=== PATIENT | male | born 1965 | race Caucasian/White ===

== ENCOUNTER → 2017-09-15 | Day surgery (SDC) | payer BC ==
[2017-09-11 11:29] VITALS: Ht 165.1 cm; Wt 77.3 kg
[~2017-09-15] VITALS: Ht 165.1 cm; Wt 77.3 kg
[~2017-09-15] MED LIST: ASPI81TA28 PO; CRS/10 PO; FLVHFA110 INH; LIDOCAINE HCL 2% 2 ML VIAL (20MG/ML) ONE; LISI-787 PO; MIDAZOLAM HCL 1 MG/ML 2ML VIAL ONE; MULTTAB58 PO; ONDANSETRON INJ 2 MG/ML 2 ML VIAL ONE; PROPOFOL IV EMULSION 10 MG/ML 20 ML VIAL IV ONE; SODIUM CHLORIDE 0.9% 500ML 500 ML IV ONE; VITA1TAB4 PO; VNTHFA/IN INH
--- NOTE | 2017-09-15 11:33 | Endo History and Physical ---
History & Physical Date of Service: Sep 15, 2017. Chief Complaint: SCREENING Referring Physician: DR. Hong COVARRUBIAS History of Present Illness 52 yo CM who presents for screening colonoscopy. Past Medical History Asthma, Gastrointestinal Disorder, Hypertension Past Surgical History Hx Cardiac Surgery: No Hx Internal Defibrillator: No Hx Pacemaker: No Hx Abdominal Surgery: No Hx of Implantable Prosthesis: No Hx Post-Op Nausea and Vomiting: No Hx Cancer Surgery: No Hx Thoracic Surgery: No Hx Orthopedic: No Hx Urinary Tract Surgery: No Family History None Social History Smoking Status: Never Smoker Hx Substance Use: No Hx Alcohol Use: No Allergies Coded Allergies: NO KNOWN DRUG ALLERGIES (Verified Allergy, Unknown, ., 09/15/17) Yellow Jacket (Verified Allergy, Unknown, THROAT SWELLING, 09/15/17) Current Medications Reported Home Medications Medications Dose Route/Sig Max Daily Dose Days Date Category Vitamin E 400 Unit Tab 1 Tab PO DAILY 09/11/17 Reported Multivitamin (Multiple Vitamin) 1 Tab Tab 1 Tab PO DAILY 09/11/17 Reported Aspirin Ec (Aspirin) 81 Mg Tab 81 Mg PO DAILY 09/11/17 Reported Ventolin Hfa (Albuterol) 200 Puffs/26179 Mcg Aers 2-4 Puffs INH Q6H PRN 09/11/17 Reported Flovent Hfa (Fluticasone Propionate) 120 Puffs/15551 Mcg Aero 2 Puffs INH BID 09/11/17 Reported Zestoretic 20MG/12.5MG (HCTZ/Lisinopril) Tab 1 Tab PO QPM 05/10/14 Reported Crestor (Rosuvastatin Calcium) 10 Mg Tab 10 Mg PO QPM 05/10/14 Reported Vital Signs Weight (Kilograms): 77.27 Height (Feet): 5 Height (Inches): 5 Date Time Temp Pulse Resp B/P (MAP) Pulse Ox O2 Delivery O2 Flow Rate FiO2 09/15/17 11:00 37.0 88 18 152/83 (106) 97 Room Air Physical Exam General Appearance: WD/WN, no apparent distress Respiratory/Chest: Auscultation: breath sounds normal Cardiovascular: Heart Auscultation: RRR Abdomen: Bowel Sounds: normal Inspection & Palpation: soft, non-distended, no tenderness, guarding & rebound Assessment and Plan Assessment: 52 yo CM who presents for screening colonoscopy. Plan: Proceed with colonoscopy.
--- NOTE | 2017-09-15 12:01 | GI REPORT ---
Procedure Date: 09/15/2017 11:18 AM Procedure: Colonoscopy Indications: Screening for colorectal malignant neoplasm Medicines: Monitored Anesthesia Care Complications: No immediate complications. Estimated Blood Loss: Estimated blood loss: none. Procedure: Pre-Anesthesia Assessment: - Prior to the procedure, a History and Physical was performed, and patient medications and allergies were reviewed. The patient's tolerance of previous anesthesia was also reviewed. The risks and benefits of the procedure and the sedation options and risks were discussed with the patient. All questions were answered, and informed consent was obtained. Prior Anticoagulants: The patient has taken aspirin, last dose was 1 day prior to procedure. ASA Grade Assessment: II - A patient with mild systemic disease. After reviewing the risks and benefits, the patient was deemed in satisfactory condition to undergo the procedure. After I obtained informed consent, the scope was passed under direct vision. Throughout the procedure, the patient's blood pressure, pulse, and oxygen saturations were monitored continuously. The On-site loaner was introduced through the anus and advanced to the terminal ileum. The colonoscopy was performed without difficulty. The patient tolerated the procedure well. The quality of the bowel preparation was good. The terminal ileum, ileocecal valve, appendiceal orifice, and rectum were photographed. Findings: The perianal and digital rectal examinations were normal. Multiple small-mouthed diverticula were found in the sigmoid colon and in the descending colon. A 3 mm polyp was found in the rectum. The polyp was sessile. The polyp was removed with a cold biopsy forceps. Resection and retrieval were complete. Non-bleeding internal hemorrhoids were found during retroflexion. The hemorrhoids were small. Impression: - Diverticulosis in the sigmoid colon and in the descending colon. - One 3 mm polyp in the rectum, removed with a cold biopsy forceps. Resected and retrieved. - Non-bleeding internal hemorrhoids. Recommendation: - Resume previous diet. - Continue present medications. - Repeat colonoscopy for surveillance based on pathology results. - Return to primary care physician as previously scheduled. Hernandez Acevedo DO 09/15/2017 12:00:41 PM This report has been signed electronically. Note Initiated On: 09/15/2017 11:18 AM I attest to the content of the Intraoperative Record and orders documented therein, exceptions below
--- NOTE | 2017-09-15 12:16 | Anesthesiology Progress Note ---
Anesthesia Post Op Note Date & Time Sep 15, 2017 at 12:16 Vital Signs Pain Intensity: 0 Vital Signs Past 12 Hours Date Time Temp Pulse Resp B/P (MAP) Pulse Ox O2 Delivery O2 Flow Rate FiO2 09/15/17 12:01 81 18 123/71 (88) 97 Room Air 09/15/17 11:00 37.0 88 18 152/83 (106) 97 Room Air Notes Mental Status: alert / awake / arousable, participated in evaluation Pt Amnestic to Procedure: Yes Nausea / Vomiting: adequately controlled Pain: adequately controlled Airway Patency, RR, SpO2: stable & adequate BP & HR: stable & adequate Hydration State: stable & adequate Anesthetic Complications: no major complications apparent
[2017-09-15 12:31] VITALS: BP 121/70; PULSE 70; O2SAT 96
--- NOTE | 2017-09-15 12:38 | Discharge Instructions ---
Endoscopy Patient Instructions Date / Procedure(s) Performed Sep 15, 2017. Colonoscopy Allergy Information Coded Allergies: NO KNOWN DRUG ALLERGIES (Verified Allergy, Unknown, ., 09/15/17) Yellow Jacket (Verified Allergy, Unknown, THROAT SWELLING, 09/15/17) Discharge Date / Findings Sep 15, 2017. Rectal polyp Diverticulosis Internal hemorrhoids Medication Instructions Stopped Medication(s): 09/14/17 ASPIRIN OK to resume all medications today as prescribed Reported Home Medications Medications Dose Route/Sig Max Daily Dose Days Date Category Vitamin E 400 Unit Tab 1 Tab PO DAILY 09/11/17 Reported Multivitamin (Multiple Vitamin) 1 Tab Tab 1 Tab PO DAILY 09/11/17 Reported Aspirin Ec (Aspirin) 81 Mg Tab 81 Mg PO DAILY 09/11/17 Reported Ventolin Hfa (Albuterol) 200 Puffs/19930 Mcg Aers 2-4 Puffs INH Q6H PRN 09/11/17 Reported Flovent Hfa (Fluticasone Propionate) 120 Puffs/28433 Mcg Aero 2 Puffs INH BID 09/11/17 Reported Zestoretic 20MG/12.5MG (HCTZ/Lisinopril) Tab 1 Tab PO QPM 05/10/14 Reported Crestor (Rosuvastatin Calcium) 10 Mg Tab 10 Mg PO QPM 05/10/14 Reported Provider Instructions Activity Restrictions - No exercising or heavy lifting for 24 hours. - Do not drink alcohol the day of the procedure. - Do not drive a car or operate machinery until the day after the procedure. - Do not make any important decisions or sign important papers in 24 hours after the procedure. Following Day: - Return to full activity which may include returning to work/school. Diet Start your diet with liquids and light foods (jello, soup, juice, toast). Then eat your usual diet if not nauseated. Treatment For Common After Affects For mild abdominal pain, bloating, or excessive gas: - Rest - Eat lightly - Lie on right side Follow-Up Information Follow-up with DR. Hong COVARRUBIAS as scheduled Anesthesia Information What You Should Know You have had a procedure that required some medicine to reduce anxiety and discomfort. This treatment is called moderate sedation. After receiving the treatment, you may be sleepy, but you will be able to breathe on your own. The effects of the treatment may last for several hours. Follow these instructions along with Activity/Diet recommendations noted above: * Do NOT do anything where dizziness or clumsiness would be dangerous. * Rest quietly at home today, then you can be up and about tomorrow. * Have a responsible person stay with you the rest of today. * You may have had an I.V. today. If so, you may take the dressing off later today. Recommendations Call your doctor if: * Trouble breathing * Continuous vomiting for more than 24 hours * Temperature above 101 degrees * Severe abdominal pain or bloating * Pain not relieved by pain medicine ordered * There is increased drainage or redness from any incision * A large amount of rectal bleeding greater than 2-3 tablespoons. (If you had a polyp/s removed or have hemorrhoids, a small amount of blood - from the rectum is to be expected.) * You have any unanswered questions or concerns. IN THE EVENT OF A SERIOUS EMERGENCY, GO TO THE NEAREST EMERGENCY ROOM Your discharge instructions were prepared by provider Hernandez Acevedo. Patient Instructions Signature Page Emigdio Thomas Patient (or Guardian) Signature/Date: I have read and understand the instructions given to me by my caregivers. Caregiver/RN/Doctor Signature/Date: The above-named patient and/or guardian has received patient instructions on this date. + Original Patient Signature Page (only) stays with chart. Please make copy for patient.
== END | disposition home or self-care (01) ==
LOC: C.GI 10:34
PROVIDERS: ATTEND Internal Medicine
DX: Z12.11 Encounter for screening for malignant neoplasm of colon (principal); K62.1 Rectal polyp; K57.30 Diverticulosis of large intestine without perforation or abscess without bleeding; K64.8 Other hemorrhoids; I10 Essential (primary) hypertension; Z79.899 Other long term (current) drug therapy

== ENCOUNTER 2017-09-22 11:24 | Inpatient (IN) | payer BC ==
[~2017-09-22] VITALS: Ht 162.6 cm; Wt 80.4 kg
[~2017-09-22 11:24] MED LIST changes: -LIDOCAINE HCL 2% 2 ML VIAL (20MG/ML) ONE; -MIDAZOLAM HCL 1 MG/ML 2ML VIAL ONE; -ONDANSETRON INJ 2 MG/ML 2 ML VIAL ONE; -PROPOFOL IV EMULSION 10 MG/ML 20 ML VIAL IV ONE; -SODIUM CHLORIDE 0.9% 500ML 500 ML IV ONE
[2017-09-22] MEDS ORDERED: ONDANSETRON INJ 2 MG/ML 2 ML VIAL IV STA (11:48)
[2017-09-22] MEDS ORDERED: SODIUM CHLORIDE 0.9% 1000ML 1,000 ML IV STA (11:48)
[2017-09-22] MEDS ORDERED: MoRPHine SULFATE 4 MG/ML 1 ML CARP\\VIAL IV PRN ×2 (12:00→13:30)
[2017-09-22] MEDS ORDERED: OPTIRAY 320 IV PRN (12:00)
[2017-09-22 12:06] LABS: BASO % 0.2 %; BASO ABS # 0.03 K/uL (0-0.2); EOS % 4.6 %; EOS ABS # 0.79 K/uL (0-0.5); HEMOGLOBIN 15.1 g/dL (14.0-18.0); IG# 0.05 K/uL (0.00-0.02); LYMPH % 10.7 %; LYMPH ABS # 1.85 K/uL (1.2-3.4); MEAN CELL VOLUME 89.4 fL (80-100); MEAN CORPUSCULAR HEMOGLOBIN 31.4 pg (25-34); MEAN CORPUSCULAR HGB CONC 35.1 g/dl (32-36); MEAN PLATELET VOLUME 10.9 fL (7.4-10.4); MONO % 4.6 %; NEUT % 79.6 %; NEUT ABS # 13.77 K/uL (1.4-6.5); PLATELET COUNT 203 K/uL (130-400); RED CELL DISTRIBUTION WIDTH CV 13.4 % (11.5-14.5); RED CELL DISTRIBUTION WIDTH SD 44.2 fL (36.4-46.3); WHITE BLOOD COUNT 17.29 K/uL (4.8-10.8)
[2017-09-22 12:24] LABS: ALBUMIN 3.9 gm/dl (3.4-5.0); CALCIUM 8.9 mg/dl (8.5-10.1); CREATININE 1.12 mg/dl (0.60-1.40); POTASSIUM 3.6 mmol/L (3.5-5.1)
[2017-09-22 12:26] LABS: TOTAL PROTEIN 7.3 gm/dl (6.4-8.2)
--- NOTE | 2017-09-22 12:31 | DIAGNOSTIC IMAGING REPORT ---
CHEST ONE VIEW PORTABLE CLINICAL HISTORY: Pain, radiating to the abdomen. COMPARISON STUDY: 05/03/2007 FINDINGS: The cardiac and mediastinal contours are normal. There is no evidence of focal pulmonary consolidation. There is no evidence of failure. No pleural effusions are visualized.[ IMPRESSION: No active disease in the chest. Electronically signed by: Gilbert Li M.D. 09/22/2017 12:29 PM Dictated Date/Time: 09/22/2017 12:29 PM
--- NOTE | 2017-09-22 14:31 | DIAGNOSTIC IMAGING REPORT ---
ABD/PELVIS IV AND ORAL CONT CT DOSE: 468.06 mGy.cm HISTORY: Pain ABDOMINAL PAIN/GI TECHNIQUE: Multiaxial CT images of the abdomen and pelvis were performed following the use of intravenous and oral contrast. A dose lowering technique was utilized adhering to the principles of ALARA. COMPARISON STUDY: 10/10/2008 FINDINGS: Lung bases are clear. Several small hepatic cysts minimal increase in size in the prior study. Gallbladder is negative for distention. Pancreas is uniform throughout. Kidneys are considered negative for hydronephrosis. Enhancement characteristics are uniform. The bowel pattern within the abdomen and pelvis is nonobstructive. There are findings of chronic colonic diverticulosis. There is evidence for acute diverticulitis within the left central mid sigmoid colon. Moderate pericolonic infiltrative change is present. There is a normal-appearing appendix. There is no evidence for abscess collection or obstruction. There is evidence for localized soft tissue air within the central and superior pelvic region. This suggests a potential localized perforation. There is again no evidence for drainable abscess or collection. There is no free air within the abdomen or upper abdominal regions. There is no evidence for pneumatosis.. IMPRESSION: 1. Acute proximal to mid sigmoid diverticulitis. 2. Moderate free intrapelvic air within the mesentery and omentum suggesting a focal diverticular perforation. 3. No evidence for abscess collection or obstructive change. 4. Study is otherwise negative. 5. Several small hepatic cysts. The above report was generated using voice recognition software. It may contain grammatical, syntax or spelling errors. Electronically signed by: Phong Winter M.D. 09/22/2017 2:29 PM Dictated Date/Time: 09/22/2017 2:22 PM
[2017-09-22] MEDS ORDERED: PIPERACILLIN/TAZOBACTAM 4.5 GM/100ML D5W IV STA (14:35)
[2017-09-22] MEDS ORDERED: METRONIDAZOLE 500MG / 100ML NSS IV STA (14:35)
[2017-09-22] MEDS ORDERED: HYDROmorphone INJ 1 MG/ML SYR IV STA (14:41)
--- NOTE | 2017-09-22 15:22 | EMERGENCY ROOM VISIT NOTE ---
History Report prepared by Monica: Bertha Jacobson Under the Supervision of: Dr. Hemant Blanco D.O. First contact with patient: 11:34 Chief Complaint: ABDOMINAL PAIN Stated Complaint: AB PAIN Nursing Triage Summary: Patient presents with c/o lower abdominal pain that is below his umbilicus that started about 0900 Denies nausea, vomiting, or diarrhea States he had a colonoscopy 09/15/17 States he was trying to have a bowel movement this morning when pain began Also reports decreased urinary output despite increased intake History of Present Illness The patient is a 52 year old male who presents to the Emergency Room with complaints of persistent right lower quadrant abdominal pain that began this morning. He currently rates his discomfort as an 8/10 in severity. The patient states that last week he had a colonoscopy. He states that his pain began 4 hours ago. The patient reports fever and chills with his symptoms today. He denies any nausea, vomiting, or diarrhea. The patient denies any previous abdominal surgeries. Source of History: patient Onset: this morning 4 hours ago Position: abdomen (RLQ) Symptom Intensity: 8/10 Timing: other (persistent) Associated Symptoms: + fevers, + chills, No nausea, No vomiting, No diarrhea Review of Systems See HPI for pertinent positives & negatives. A total of 10 systems reviewed and were otherwise negative. Past Medical & Surgical Medical Problems: (1) Asthma (2) Diverticulitis (3) Diverticulitis (4) Hypertension Surgical Problems: (1) H/O colonoscopy Family History No pertinent family history stated. Social History Smoking Status: Never Smoker Marital Status: Housing Status: lives with significant other Occupation Status: employed Current/Historical Medications Scheduled Aspirin (Aspirin Ec), 81 MG PO DAILY Fluticasone Propionate (Flovent Hfa), 2 PUFFS INH BID Lisinopril/Hctz (Zestoretic 20MG/12.5MG), 1 TAB PO QPM Multiple Vitamin (Multivitamin), 1 TAB PO DAILY Rosuvastatin Calcium (Crestor), 10 MG PO QPM Vitamin E (Vitamin E), 1 TAB PO DAILY Scheduled PRN Albuterol Hfa (Ventolin Hfa), 2-4 PUFFS INH Q6H PRN for Shortness of Breath Allergies Coded Allergies: NO KNOWN DRUG ALLERGIES (Verified Allergy, Unknown, ., 09/22/17) Yellow Jacket (Verified Allergy, Unknown, THROAT SWELLING, 09/22/17) Physical Exam Vital Signs Date Time Temp Pulse Resp B/P (MAP) Pulse Ox O2 Delivery O2 Flow Rate FiO2 09/22/17 14:46 100 18 126/77 99 Room Air 09/22/17 13:52 72 18 119/69 98 Room Air 09/22/17 11:28 36.5 74 20 162/108 99 Room Air Physical Exam CONSTITUTIONAL/VITAL SIGNS: Reviewed / noted above. GENERAL: Non-toxic in appearance. INTEGUMENTARY: Warm, dry, and [place]. HEAD: Normocephalic. EYES: without scleral icterus or trauma. ENT/OROPHARYNX: clear and moist. LYMPHADENOPATHY/NECK: Is supple without lymphadenopathy or meningismus. RESPIRATORY: Lungs clear and equal. CARDIOVASCULAR: Regular rate and rhythm. GI/ABDOMEN: Soft and tenderness to palpation of the right lower quadrant and suprapubic area. No organomegaly or pulsatile mass. No rebound or guarding. Normal bowel sounds. EXTREMITIES: Warm and well perfused. BACK: No CVA tenderness. NEUROLOGICAL: Intact without focal deficits. PSYCHIATRIC: normal affect. MUSCULOSKELETAL: Normally developed with good muscle tone. Medical Decision & Procedures ER Provider Diagnostic Interpretation: Radiology results as stated below per my review and radiologist interpretation: ABD/PELVIS IV AND ORAL CONT CT DOSE: 468.06 mGy.cm HISTORY: Pain ABDOMINAL PAIN/GI TECHNIQUE: Multiaxial CT images of the abdomen and pelvis were performed following the use of intravenous and oral contrast. A dose lowering technique was utilized adhering to the principles of ALARA. COMPARISON STUDY: 10/10/2008 FINDINGS: Lung bases are clear. Several small hepatic cysts minimal increase in size in the prior study. Gallbladder is negative for distention. Pancreas is uniform throughout. Kidneys are considered negative for hydronephrosis. Enhancement characteristics are uniform. The bowel pattern within the abdomen and pelvis is nonobstructive. There are findings of chronic colonic diverticulosis. There is evidence for acute diverticulitis within the left central mid sigmoid colon. Moderate pericolonic infiltrative change is present. There is a normal-appearing appendix. There is no evidence for abscess collection or obstruction. There is evidence for localized soft tissue air within the central and superior pelvic region. This suggests a potential localized perforation. There is again no evidence for drainable abscess or collection. There is no free air within the abdomen or upper abdominal regions. There is no evidence for pneumatosis.. IMPRESSION: 1. Acute proximal to mid sigmoid diverticulitis. 2. Moderate free intrapelvic air within the mesentery and omentum suggesting a focal diverticular perforation. 3. No evidence for abscess collection or obstructive change. 4. Study is otherwise negative. 5. Several small hepatic cysts. The above report was generated using voice recognition software. It may contain grammatical, syntax or spelling errors. Electronically signed by: Phong Winter M.D. 09/22/2017 2:29 PM Dictated Date/Time: 09/22/2017 2:22 PM CHEST ONE VIEW PORTABLE CLINICAL HISTORY: Pain, radiating to the abdomen. COMPARISON STUDY: 05/03/2007 FINDINGS: The cardiac and mediastinal contours are normal. There is no evidence of focal pulmonary consolidation. There is no evidence of failure. No pleural effusions are visualized.[ IMPRESSION: No active disease in the chest. Electronically signed by: Gilbert Li M.D. 09/22/2017 12:29 PM Dictated Date/Time: 09/22/2017 12:29 PM The status of this report is Signed. Draft = Not yet reviewed or approved by Radiologist. Signed = Reviewed and approved by Radiologist. Laboratory Results 09/22/17 11:48 Red Blood Count 4.81, Mean Corpuscular Volume 89.4, Mean Corpuscular Hemoglobin 31.4, Mean Corpuscular Hemoglobin Concent 35.1, Mean Platelet Volume 10.9, Neutrophils (%) (Auto) 79.6, Lymphocytes (%) (Auto) 10.7, Monocytes (%) (Auto) 4.6, Eosinophils (%) (Auto) 4.6, Basophils (%) (Auto) 0.2, Neutrophils # (Auto) 13.77, Lymphocytes # (Auto) 1.85, Monocytes # (Auto) 0.80, Eosinophils # (Auto) 0.79, Basophils # (Auto) 0.03 Test 09/22/17 11:48 09/22/17 12:25 09/22/17 15:05 White Blood Count 17.29 K/uL (4.8-10.8) Red Blood Count 4.81 M/uL (4.7-6.1) Hemoglobin 15.1 g/dL (14.0-18.0) Hematocrit 43.0 % (42-52) Mean Corpuscular Volume 89.4 fL (80-100) Mean Corpuscular Hemoglobin 31.4 pg (25-34) Mean Corpuscular Hemoglobin Concent 35.1 g/dl (32-36) Platelet Count 203 K/uL (130-400) Mean Platelet Volume 10.9 fL (7.4-10.4) Neutrophils (%) (Auto) 79.6 % Lymphocytes (%) (Auto) 10.7 % Monocytes (%) (Auto) 4.6 % Eosinophils (%) (Auto) 4.6 % Basophils (%) (Auto) 0.2 % Neutrophils # (Auto) 13.77 K/uL (1.4-6.5) Lymphocytes # (Auto) 1.85 K/uL (1.2-3.4) Monocytes # (Auto) 0.80 K/uL (0.11-0.59) Eosinophils # (Auto) 0.79 K/uL (0-0.5) Basophils # (Auto) 0.03 K/uL (0-0.2) RDW Standard Deviation 44.2 fL (36.4-46.3) RDW Coefficient of Variation 13.4 % (11.5-14.5) Immature Granulocyte % (Auto) 0.3 % Immature Granulocyte # (Auto) 0.05 K/uL (0.00-0.02) Est Creatinine Clear Calc Drug Dose 73.0 ml/min Total Bilirubin 0.5 mg/dl (0.2-1) Direct Bilirubin 0.1 mg/dl (0-0.2) Aspartate Amino Transf (AST/SGOT) 19 U/L (15-37) Alanine Aminotransferase (ALT/SGPT) 34 U/L (12-78) Alkaline Phosphatase 62 U/L (45-117) Total Protein 7.3 gm/dl (6.4-8.2) Albumin 3.9 gm/dl (3.4-5.0) Lipase 278 U/L (73-393) Urine Color YELLOW Urine Appearance CLEAR (CLEAR) Urine pH 8.0 (4.5-7.5) Urine Specific Almond 1.021 (1.000-1.030) Urine Protein NEG (NEG) Urine Glucose (UA) NEG (NEG) Urine Ketones NEG (NEG) Urine Occult Blood NEG (NEG) Urine Nitrite NEG (NEG) Urine Bilirubin NEG (NEG) Urine Urobilinogen NEG (NEG) Urine Leukocyte Esterase NEG (NEG) Urine WBC (Auto) 0 /hpf (0-5) Urine RBC (Auto) 0-4 /hpf (0-4) Urine Hyaline Casts (Auto) 0 /lpf (0-5) Urine Epithelial Cells (Auto) 0-5 /lpf (0-5) Urine Bacteria (Auto) NEG (NEG) Laboratory results as stated above per my review. Medications Administered Medications (Trade) Dose Ordered Sig/Gagandeep Route Start Time Stop Time Status Last Admin Dose Admin Sodium Chloride 1,000 ml @ 999 mls/hr Q1H1M STAT IV 09/22/17 11:48 09/22/17 12:48 DC 09/22/17 12:23 999 MLS/HR Ondansetron HCl (Zofran Inj) 4 mg NOW STAT IV 09/22/17 11:48 09/22/17 11:52 DC 09/22/17 12:23 4 MG Morphine Sulfate (MoRPHine SULFATE INJ) 4 mg Q1H PRN IV 09/22/17 12:00 10/06/17 11:59 09/22/17 12:23 4 MG Piperacillin Sod/ Tazobactam Sod (Zosyn Iv) 4.5 gm NOW STAT IV 09/22/17 14:35 09/22/17 14:37 DC 09/22/17 15:14 4.5 GM Hydromorphone HCl (Dilaudid Inj) 1 mg NOW STAT IV 09/22/17 14:41 09/22/17 14:42 DC 09/22/17 14:48 1 MG ED Course 1151: Previous medical records were reviewed. The patient was evaluated in room C7. A complete history and physical examination was performed. 1148: Ordered Zofran Inj 4 mg IV, Sodium Chloride 1000 ml @ 999 mls/hr IV. 1200: Ordered Morphine Sulfate 4 mg IV. 1330: Ordered Morphine Sulfate 4 mg IV. 1430: My medical student spoke to Dr. Winter, Radiology at this time regarding the patients catscan. He states that the patient has perforated sigmoid diverticulitis. 1435: Ordered Flagyl/Nss 500 mg IV, Zosyn IV 4.5 gm IV. 1438: I spoke to Diego Jones, General Surgery PA-C. He states that he will come down to evaluate the patient. 1442: The medical student updated the patient on the test results and treatment plan. The patient is in agreement. Medical Decision Differential considered: pancreatitis, hepatitis, or acute cholecystitis, AAA, UTI, pyelonephritis, kidney stones, appendicitis, diverticulitis, shingles, bowel obstruction mesenteric ischemia, intussusception, hernia, testicular torsion. This is a 52-year-old male who presents to the ED with a chief complaint of lower abdominal pain. The patient states that his symptoms started around 8:30 this morning. It is progressively worsened throughout the day. It radiates slightly into the right lateral abdomen. His initial blood pressure was elevated. His physical exam reveals tenderness of the right lower quadrant and suprapubic area. There is no CVA tenderness. The patient denies any previous surgical history. Has no urinary symptoms. CT scan of the abdomen and pelvis reveals a perforated diverticulitis. White blood cell count is elevated at 17, 000. Chemistry panel was unremarkable. Chest x-ray is negative for acute disease. The patient was told the results. He was started on IV Zosyn. Surgery was consulted and will admit the patient for further evaluation and care. Medication Reconcilliation Current Medication List: was personally reviewed by me Consults Time Called: 1436 Consulting Physician: General [facility] Returned Call: [phone] I spoke to Diego Jones General Em CHATMAN. He states that he will come down to evaluate the patient. Impression Primary Impression: Perforation of intestine due to diverticulitis of gastrointestinal tract Scribe Attestation The scribe's documentation has been prepared under my direction and personally reviewed by me in its entirety. I confirm that the note above accurately reflects all work, treatment, procedures, and medical decision making performed by me. Departure Information Dispostion Being Evaluated By Surgeon Hany Garrett M.D. (PCP) Patient Instructions My [facility]
[2017-09-22] MEDS ORDERED: ALBUTEROL HFA 8 GM INHALER INH PRN (15:30)
[2017-09-22 16:36] LABS: CALCIUM 8.5 mg/dl (8.5-10.1); CREATININE 1.18 mg/dl (0.60-1.40); POTASSIUM 3.6 mmol/L (3.5-5.1)
[2017-09-22 17:00] VITALS: BP 122/68; PULSE 91; TEMP 38.2; O2SAT 93; Ht 162.6 cm; Wt 80.4 kg
[2017-09-22] MEDS ORDERED: PIPERACILL/TAZOBAC CONSULT ACTIVE PRN (17:15)
[2017-09-22] MEDS: SODIUM CHLORIDE 0.9% 1000ML 1,000 ML IV SCH ×2 (17:31→23:42)
[2017-09-22] MEDS: ACETAMINOPHEN 500 MG TAB PO PRN ×2 (17:32→23:38)
[2017-09-22] MEDS: MoRPHine SULFATE 2 MG/ML CARP IV PRN ×2 (17:33→23:37)
[2017-09-22] MEDS: ONDANSETRON INJ 2 MG/ML 2 ML VIAL IV PRN ×2 (18:00→23:38)
--- NOTE | 2017-09-22 19:06 | SURGERY PROGRESS NOTE ---
DATE: 09/22/2017 FOLLOWUP NOTE TIME: Seen at about 6:15 in the evening. SUBJECTIVE: Emigdio is resting fairly comfortable. He denies any nausea. His abdomen is softly distended and there is no localized tenderness. His last vitals showed a temperature of 38.2, pulse 82, respirations 18, blood pressure 118/73, O2 sats 98% on room air. The present pathology was discussed with Emigdio including the necessity of surgery and certainly would like to wait more electively rather than proceeding with any acute problem. he had colonoscopy just 4 days ago and this pain just started acutely today, so certainly is not related to that procedure. The path report on the polyp that was removed was fine. At this point, hopefully we can get him over this episode and eventually will need resections as the patient has had symptoms dating back approximately 13 years ago. He never followed up with a colorectal surgeon at that time. JEFFREY
[2017-09-22] MEDS: PIPERACILL/TAZOBAC IV 3.375 GM in DEXTROSE 5% 100ML 100 ML IV SCH (19:32)
[2017-09-22] MEDS ORDERED: INFLUENZA ADMINISTRATION CHARGE ONE (20:00)
[2017-09-22] MEDS ORDERED: INFLUENZA VIRUS QUAD VACCINE 0.5 ML SYR IM. ONE (20:00)
[2017-09-22] MEDS: LISINOPRIL/HCTZ 20/12.5MG TAB PO SCH (21:06)
[2017-09-22] MEDS: FLUTICASONE HFA 110MCG INHALER INH SCH (21:06)
[2017-09-22] MEDS: ROSUVASTATIN CALCIUM 10 MG TAB PO SCH (21:06)
[2017-09-22 21:14] VITALS: BP 116/70; PULSE 60; PULSE 91; TEMP 37.6
[2017-09-22] MEDS: METRONIDAZOLE / NSS 500 MG in PREMIXED NSS 100 ML IV SCH (22:14)
[2017-09-22 22:50] VITALS: BP 116/68; PULSE 99; TEMP 39.1; O2SAT 92
[2017-09-22 23:35] VITALS: TEMP 37.9
[2017-09-23 02:22] VITALS: TEMP 37.1
[2017-09-23] MEDS: PIPERACILL/TAZOBAC IV 3.375 GM in DEXTROSE 5% 100ML 100 ML IV SCH ×3 (03:33→19:47)
[2017-09-23] MEDS: MoRPHine SULFATE 2 MG/ML CARP IV PRN ×3 (03:36→05:44)
[2017-09-23] MEDS: SODIUM CHLORIDE 0.9% 1000ML 1,000 ML IV SCH ×3 (04:22→19:47)
[2017-09-23] MEDS: ONDANSETRON INJ 2 MG/ML 2 ML VIAL IV PRN ×3 (04:36→19:53)
[2017-09-23] MEDS: METRONIDAZOLE / NSS 500 MG in PREMIXED NSS 100 ML IV SCH ×3 (05:35→22:27)
[2017-09-23] MEDS: ACETAMINOPHEN 500 MG TAB PO PRN (05:44)
[2017-09-23 05:51] LABS: BASO % 0.1 %; BASO ABS # 0.01 K/uL (0-0.2); EOS % 0.3 %; EOS ABS # 0.05 K/uL (0-0.5); HEMATOCRIT 42.4 % (42-52); HEMOGLOBIN 14.5 g/dL (14.0-18.0); IG# 0.06 K/uL (0.00-0.02); LYMPH % 10.3 %; MEAN CELL VOLUME 90.4 fL (80-100); MEAN CORPUSCULAR HEMOGLOBIN 30.9 pg (25-34); MEAN CORPUSCULAR HGB CONC 34.2 g/dl (32-36); MEAN PLATELET VOLUME 10.7 fL (7.4-10.4); MONO % 3.7 %; MONO ABS # 0.68 K/uL (0.11-0.59); NEUT % 85.3 %; NEUT ABS # 15.72 K/uL (1.4-6.5); PLATELET COUNT 177 K/uL (130-400); WHITE BLOOD COUNT 18.42 K/uL (4.8-10.8)
[2017-09-23 06:25] LABS: CREATININE 1.32 mg/dl (0.60-1.40)
--- NOTE | 2017-09-23 06:31 | SURGERY PROGRESS NOTE ---
DATE: 09/23/2017 Emigdio feels a little bit better. He states his fever broke. His belly is pretty much unchanged, but he is bit better. He states he has started to pass some flatus. His last vitals showed a temperature of 37.1, his pulse midnight was 99, respirations 18, blood pressure 116/68. The abdomen is softly distended, it is nontender. There is no guarding. At this point, the lab is pending. We will continue present therapy and hold off feeding him at this time. Hopefully, we can get him through this acute episode and schedule for elective resection in the future.
[2017-09-23 07:13] VITALS: BP 117/69; PULSE 73; TEMP 36.7; O2SAT 94
--- NOTE | 2017-09-23 07:46 | Clinical Documentation Query ---
CLINICAL DOCUMENTATION QUERY A 52 year old male who presents to the Emergency Room with complaints of persistent right lower quadrant abdominal pain that began this morning. In your clinical opinion is this patient being managed for: ( x) Sepsis in the setting of acute diverticulitis with perforation and treated with Zosyn IV ( ) Not Agree ( ) Other explanation of clinical findings (Please Explain) ( ) Unable to determine (Please Define) ( ) Need to Discuss SEPSIS: SIRS d/t an Infection SIRS may be indicated by 2 or more of the following; Temp < 96.8*F/36*C or > 100.4*F/38*C Resp > 20 breaths/min Pulse > 90 bpm PaCO2 <32 mmHg WBC > 12K or < 4K or Bands > 10% The medical record reflects the following clinical findings, treatment, and risk factors. Clinical Indicators: WBC 18.42, temp 39.1, pulse 100 Treatment: Zosyn IV, serial CBCs Risk Factors: Diverticulitis Please clarify and document your clinical opinion in the progress notes and discharge summary. Terms such as "probable", "suspected", "likely", "questionable", "possible", or "still to be ruled out" are acceptable. IF IN AGREEMENT, YOU MUST DOCUMENT ABOVE DIAGNOSTIC STATEMENT IN DAILY PROGRESS NOTES AND DISCHARGE SUMMARY. This document is not part of the patient's record. Thank You, Estefany Brooks RN [phone]
--- NOTE | 2017-09-23 08:06 | NUR ---
The patient has demonstrated progress toward goals and readiness for discharge as demonstrated by:OOB INDEPENDENTLY. CONTINUES TO HAVE ABDOMINAL PAIN INTERMITTENTLY. CONTROLLED WITH IV PAIN MEDS. REMAINS NPO THIS AM. REMAINS TENDER IN RLQ. IV FLUIDS CONTINUED.
[2017-09-23] MEDS: HYDROmorphone INJ 1 MG/ML SYR IV PRN ×4 (09:04→21:12)
[2017-09-23] MEDS: FLUTICASONE HFA 110MCG INHALER INH SCH ×2 (09:04→20:50)
[2017-09-23] MEDS: ASPIRIN 81 MG ECTAB PO SCH (09:04)
--- NOTE | 2017-09-23 11:37 | NUR ---
MIKAYLA screened pt for diagnosis of diverticulitis, refer to linked note for full assessment and recommendations. Addendum: 09/23/17 at [address] Amended: Links added.
[2017-09-23 15:03] VITALS: BP 118/70; PULSE 95; TEMP 37; O2SAT 91
[2017-09-23] MEDS: ROSUVASTATIN CALCIUM 10 MG TAB PO SCH (20:50)
[2017-09-23] MEDS: LISINOPRIL/HCTZ 20/12.5MG TAB PO SCH (20:51)
[2017-09-23 23:25] VITALS: BP 109/66; PULSE 93; TEMP 37.5; O2SAT 92
[2017-09-24] VITALS (8 sets, daily range): BP systolic 112–123; BP diastolic 68–75; PULSE 68–84; TEMP 36.8–38; O2SAT 91–94
[2017-09-24] MEDS: ONDANSETRON INJ 2 MG/ML 2 ML VIAL IV PRN ×3 (01:58→11:15)
[2017-09-24] MEDS: HYDROmorphone INJ 1 MG/ML SYR IV PRN ×4 (01:59→21:46)
[2017-09-24] MEDS: PIPERACILL/TAZOBAC IV 3.375 GM in DEXTROSE 5% 100ML 100 ML IV SCH ×3 (03:43→21:28)
[2017-09-24] MEDS: SODIUM CHLORIDE 0.9% 1000ML 1,000 ML IV SCH (03:43)
[2017-09-24] MEDS: METRONIDAZOLE / NSS 500 MG in PREMIXED NSS 100 ML IV SCH ×3 (05:34→21:36)
[2017-09-24] MEDS: ACETAMINOPHEN 500 MG TAB PO PRN ×2 (06:01→18:19)
[2017-09-24 06:56] LABS: CREATININE 1.23 mg/dl (0.60-1.40)
[2017-09-24] MEDS ORDERED: OXYCODONE/ACETAMINOPHEN 5-325 TAB PO PRN (07:00)
--- NOTE | 2017-09-24 07:00 | SURGERY PROGRESS NOTE ---
DATE: 09/24/2017 Emigdio feels much better than he had been. He states he had a very good day yesterday. His belly is much softer. He has less pain. He had a small bowel movement. His last vitals showed a temperature of 37.5, pulse 92, respirations 18, blood pressure 109/66, O2 sats 99 on room air. I&O he had 400 mL of urine overnight, as stated he had 1 bowel movement. Laboratories pending this morning. His abdomen is much softer. There is no localized tenderness but it is still slightly distended. At this point, we will await the lab and if he continues on the present therapy, so we will probably keep him here until tomorrow and then plan to send him home on p.o. antibiotics, but he will need a resection and we will plan that electively in the future.
[2017-09-24 07:23] LABS: BASO % 0.1 %; BASO ABS # 0.02 K/uL (0-0.2); EOS % 0.1 %; EOS ABS # 0.01 K/uL (0-0.5); HEMATOCRIT 34.9 % (42-52); HEMOGLOBIN 11.8 g/dL (14.0-18.0); IG# 0.06 K/uL (0.00-0.02); LYMPH % 9.1 %; MEAN CELL VOLUME 91.1 fL (80-100); MEAN CORPUSCULAR HEMOGLOBIN 30.8 pg (25-34); MEAN CORPUSCULAR HGB CONC 33.8 g/dl (32-36); MEAN PLATELET VOLUME 10.6 fL (7.4-10.4); MONO % 3.5 %; MONO ABS # 0.61 K/uL (0.11-0.59); NEUT % 86.9 %; NEUT ABS # 15.24 K/uL (1.4-6.5); PLATELET COUNT 153 K/uL (130-400); RED CELL DISTRIBUTION WIDTH SD 46.4 fL (36.4-46.3); WHITE BLOOD COUNT 17.54 K/uL (4.8-10.8)
[2017-09-24 07:26] LABS: CALCIUM 7.3 mg/dl (8.5-10.1); CREATININE 1.2 mg/dl (0.60-1.40); POTASSIUM 2.9 mmol/L (3.5-5.1)
[2017-09-24] MEDS: FLUTICASONE HFA 110MCG INHALER INH SCH ×2 (09:12→21:10)
[2017-09-24] MEDS: ASPIRIN 81 MG ECTAB PO SCH (09:12)
[2017-09-24] MEDS: POTASSIUM CHLORIDE INJ 40 MEQ in SODIUM CHLORIDE 0.9% 1000ML 1,000 ML IV SCH ×2 (11:33→21:28)
--- NOTE | 2017-09-24 12:08 | NUR ---
ID: pt. a/ox4, IND in room, tolerating clear liquid diet. IVFs infusing per MD order. Will continue to monitor.
[2017-09-24] MEDS: PROMETHAZINE HCL INJ 12.5 MG in SODIUM CHLORIDE 0.9% 50ML 50 ML IV PRN (15:53)
--- NOTE | 2017-09-24 19:19 | NUR ---
A note: A temp of 38.0 was obtained per family request. A Tylenol 500mg tab given. Rechecked for relief of fever to 36.9.
[2017-09-24] MEDS: LISINOPRIL/HCTZ 20/12.5MG TAB PO SCH (21:10)
[2017-09-24] MEDS: ROSUVASTATIN CALCIUM 10 MG TAB PO SCH (21:10)
[2017-09-25 03:44] LABS: BASO % 0.1 %; BASO ABS # 0.02 K/uL (0-0.2); EOS % 0.5 %; EOS ABS # 0.07 K/uL (0-0.5); HEMATOCRIT 33.8 % (42-52); HEMOGLOBIN 11.6 g/dL (14.0-18.0); IG# 0.03 K/uL (0.00-0.02); LYMPH % 7.9 %; LYMPH ABS # 1.08 K/uL (1.2-3.4); MEAN CELL VOLUME 89.9 fL (80-100); MEAN CORPUSCULAR HEMOGLOBIN 30.9 pg (25-34); MEAN CORPUSCULAR HGB CONC 34.3 g/dl (32-36); MEAN PLATELET VOLUME 10.9 fL (7.4-10.4); MONO % 3.5 %; MONO ABS # 0.48 K/uL (0.11-0.59); NEUT % 87.8 %; NEUT ABS # 11.97 K/uL (1.4-6.5); PLATELET COUNT 153 K/uL (130-400); RED CELL DISTRIBUTION WIDTH CV 13.7 % (11.5-14.5); RED CELL DISTRIBUTION WIDTH SD 45.1 fL (36.4-46.3); WHITE BLOOD COUNT 13.65 K/uL (4.8-10.8)
[2017-09-25] MEDS: PIPERACILL/TAZOBAC IV 3.375 GM in DEXTROSE 5% 100ML 100 ML IV SCH ×3 (04:08→20:18)
[2017-09-25] MEDS: POTASSIUM CHLORIDE INJ 40 MEQ in SODIUM CHLORIDE 0.9% 1000ML 1,000 ML IV SCH ×2 (04:08→13:43)
[2017-09-25] MEDS: ACETAMINOPHEN 500 MG TAB PO PRN (04:10)
[2017-09-25 04:11] LABS: CALCIUM 7.5 mg/dl (8.5-10.1); CREATININE 0.99 mg/dl (0.60-1.40); POTASSIUM 3.3 mmol/L (3.5-5.1)
[2017-09-25] MEDS: METRONIDAZOLE / NSS 500 MG in PREMIXED NSS 100 ML IV SCH (05:57)
[2017-09-25] MEDS: ONDANSETRON INJ 2 MG/ML 2 ML VIAL IV PRN ×3 (05:57→19:52)
[2017-09-25 06:04] VITALS: TEMP 37.1
[2017-09-25 07:23] VITALS: BP 121/76; PULSE 58; TEMP 36.8; O2SAT 93
--- NOTE | 2017-09-25 07:25 | Surgery Progress Note ---
Surgery Progress Note Date of Service Sep 25, 2017. Subjective nausea yesterday, didn't drink much, bowels moving, no abdominal pain Objective Vital Signs: Date Time Temp Pulse Resp B/P (MAP) Pulse Ox O2 Delivery O2 Flow Rate FiO2 09/25/17 06:04 37.1 09/24/17 23:15 Room Air 09/24/17 22:52 36.8 69 16 122/75 (91) 93 Room Air 09/24/17 20:00 36.9 09/24/17 18:19 38.0 09/24/17 16:45 Room Air 09/24/17 15:51 37.1 68 18 123/72 (89) 94 Room Air 09/24/17 10:03 91 Room Air 09/24/17 08:30 92 Room Air 09/24/17 08:20 37.9 84 16 112/68 (83) 92 Room Air Abdomen: non tender, non distended, soft Laboratory Results: Results Past 24 Hours Test 09/25/17 03:09 Range/Units White Blood Count 13.65 4.8-10.8 K/uL Red Blood Count 3.76 4.7-6.1 M/uL Hemoglobin 11.6 14.0-18.0 g/dL Hematocrit 33.8 42-52 % Mean Corpuscular Volume 89.9 80-100 fL Mean Corpuscular Hemoglobin 30.9 25-34 pg Mean Corpuscular Hemoglobin Concent 34.3 32-36 g/dl Platelet Count 153 130-400 K/uL Mean Platelet Volume 10.9 7.4-10.4 fL Neutrophils (%) (Auto) 87.8 % Lymphocytes (%) (Auto) 7.9 % Monocytes (%) (Auto) 3.5 % Eosinophils (%) (Auto) 0.5 % Basophils (%) (Auto) 0.1 % Neutrophils # (Auto) 11.97 1.4-6.5 K/uL Lymphocytes # (Auto) 1.08 1.2-3.4 K/uL Monocytes # (Auto) 0.48 0.11-0.59 K/uL Eosinophils # (Auto) 0.07 0-0.5 K/uL Basophils # (Auto) 0.02 0-0.2 K/uL RDW Standard Deviation 45.1 36.4-46.3 fL RDW Coefficient of Variation 13.7 11.5-14.5 % Immature Granulocyte % (Auto) 0.2 % Immature Granulocyte # (Auto) 0.03 0.00-0.02 K/uL Sodium Level 137 136-145 mmol/L Potassium Level 3.3 3.5-5.1 mmol/L Chloride Level 105 98-107 mmol/L Carbon Dioxide Level 26 21-32 mmol/L Anion Gap 6.0 3-11 mmol/L Blood Urea Nitrogen 13 7-18 mg/dl Creatinine 0.99 0.60-1.40 mg/dl Est Creatinine Clear Calc Drug Dose 82.6 ml/min Estimated GFR () 100.4 Estimated GFR (Non- 86.6 BUN/Creatinine Ratio 13.4 10-20 Random Glucose 110 70-99 mg/dl Calcium Level 7.5 8.5-10.1 mg/dl Assessment & Plan diverticulitis with microperf seen with Dr. Silver WBC improved, will d/c Flagyl ? causing nausea, did not have dilaudid yesterday decrease IVF, K+ improved can begin advancing diet as melany keep here today on IV abx, T max 38 last evening
[2017-09-25] MEDS: FLUTICASONE HFA 110MCG INHALER INH SCH ×2 (07:38→20:23)
[2017-09-25] MEDS: ASPIRIN 81 MG ECTAB PO SCH (07:38)
--- NOTE | 2017-09-25 12:13 | NUR ---
ID: Assessment unchanged. pt. a/ox4, IND in room, tolerating clear liquid diet. IVFs infusing per MD order. Will continue to monitor.
--- NOTE | 2017-09-25 15:05 | NUR ---
MIKAYLA screened pt for NPO/CL x 4 days, entered process plan. Refer to linked note for full assessment and recommendations. Addendum: 09/25/17 at [address] Amended: Links added. Addendum: 09/25/17 at [address] Recommend addition of Boost Breeze BIDM d/t prolonged inadequate oral intakes.
[2017-09-25 15:15] VITALS: BP 130/81; PULSE 65; TEMP 36.9; O2SAT 95
[2017-09-25] MEDS: PROMETHAZINE HCL INJ 12.5 MG in SODIUM CHLORIDE 0.9% 50ML 50 ML IV PRN (16:41)
[2017-09-25 18:00] VITALS: O2SAT 97
[2017-09-25] MEDS: ROSUVASTATIN CALCIUM 10 MG TAB PO SCH (20:24)
[2017-09-25] MEDS: LISINOPRIL/HCTZ 20/12.5MG TAB PO SCH (20:24)
[2017-09-25 22:55] VITALS: BP 145/85; PULSE 53; TEMP 36.8; O2SAT 96
[2017-09-26] MEDS: PIPERACILL/TAZOBAC IV 3.375 GM in DEXTROSE 5% 100ML 100 ML IV SCH ×2 (03:42→12:00)
[2017-09-26] MEDS: POTASSIUM CHLORIDE INJ 40 MEQ in SODIUM CHLORIDE 0.9% 1000ML 1,000 ML IV SCH (03:42)
[2017-09-26 06:21] LABS: BASO % 0.3 %; BASO ABS # 0.03 K/uL (0-0.2); EOS % 1.7 %; EOS ABS # 0.18 K/uL (0-0.5); HEMOGLOBIN 12.6 g/dL (14.0-18.0); IG# 0.03 K/uL (0.00-0.02); LYMPH % 13.2 %; MEAN CELL VOLUME 89.4 fL (80-100); MEAN CORPUSCULAR HEMOGLOBIN 30.4 pg (25-34); MEAN CORPUSCULAR HGB CONC 34.1 g/dl (32-36); MEAN PLATELET VOLUME 10.7 fL (7.4-10.4); MONO % 6.2 %; MONO ABS # 0.66 K/uL (0.11-0.59); NEUT % 78.3 %; NEUT ABS # 8.34 K/uL (1.4-6.5); PLATELET COUNT 201 K/uL (130-400); RED CELL DISTRIBUTION WIDTH CV 13.8 % (11.5-14.5); RED CELL DISTRIBUTION WIDTH SD 45.5 fL (36.4-46.3); WHITE BLOOD COUNT 10.64 K/uL (4.8-10.8)
[2017-09-26 06:52] LABS: CALCIUM 7.8 mg/dl (8.5-10.1); CREATININE 0.96 mg/dl (0.60-1.40); POTASSIUM 3.3 mmol/L (3.5-5.1)
--- NOTE | 2017-09-26 07:33 | Surgery Progress Note ---
Surgery Progress Note Date of Service Sep 26, 2017. Subjective nausea resolved overnight, had small amounts of clears yesterday, bowels moving , no abdominal pain Objective Vital Signs: Date Time Temp Pulse Resp B/P (MAP) Pulse Ox O2 Delivery O2 Flow Rate FiO2 09/26/17 00:20 Room Air 09/25/17 22:55 36.8 53 16 145/85 (105) 96 Room Air 09/25/17 18:00 97 Room Air 09/25/17 15:20 Room Air 09/25/17 15:15 36.9 65 18 130/81 (97) 95 Room Air 09/25/17 07:45 Room Air Abdomen: non tender, non distended, soft Laboratory Results: Results Past 24 Hours Test 09/26/17 05:56 Range/Units White Blood Count 10.64 4.8-10.8 K/uL Red Blood Count 4.14 4.7-6.1 M/uL Hemoglobin 12.6 14.0-18.0 g/dL Hematocrit 37.0 42-52 % Mean Corpuscular Volume 89.4 80-100 fL Mean Corpuscular Hemoglobin 30.4 25-34 pg Mean Corpuscular Hemoglobin Concent 34.1 32-36 g/dl Platelet Count 201 130-400 K/uL Mean Platelet Volume 10.7 7.4-10.4 fL Neutrophils (%) (Auto) 78.3 % Lymphocytes (%) (Auto) 13.2 % Monocytes (%) (Auto) 6.2 % Eosinophils (%) (Auto) 1.7 % Basophils (%) (Auto) 0.3 % Neutrophils # (Auto) 8.34 1.4-6.5 K/uL Lymphocytes # (Auto) 1.40 1.2-3.4 K/uL Monocytes # (Auto) 0.66 0.11-0.59 K/uL Eosinophils # (Auto) 0.18 0-0.5 K/uL Basophils # (Auto) 0.03 0-0.2 K/uL RDW Standard Deviation 45.5 36.4-46.3 fL RDW Coefficient of Variation 13.8 11.5-14.5 % Immature Granulocyte % (Auto) 0.3 % Immature Granulocyte # (Auto) 0.03 0.00-0.02 K/uL Sodium Level 139 136-145 mmol/L Potassium Level 3.3 3.5-5.1 mmol/L Chloride Level 106 98-107 mmol/L Carbon Dioxide Level 26 21-32 mmol/L Anion Gap 7.0 3-11 mmol/L Blood Urea Nitrogen 11 7-18 mg/dl Creatinine 0.96 0.60-1.40 mg/dl Est Creatinine Clear Calc Drug Dose 85.2 ml/min Estimated GFR () 104.2 Estimated GFR (Non- 89.9 BUN/Creatinine Ratio 11.2 10-20 Random Glucose 97 70-99 mg/dl Calcium Level 7.8 8.5-10.1 mg/dl Assessment & Plan diverticulitis with microperf seen with Dr. Silver WBC normalizing advance diet as melany home when tolerating diet
[2017-09-26] MEDS ORDERED: AMOX875T PO (07:34)
--- NOTE | 2017-09-26 07:36 | Discharge Instructions ---
Discharge Instructions Date of Service Sep 26, 2017. Admission Reason for Admission: Diverticulitis Discharge Discharge Diagnosis / Problem: diverticulitis Discharge Goals Goal(s): Improve disease control Activity Recommendations Activity Limitations: resume your previous activity . Instructions / Follow-Up Instructions / Follow-Up Dr. Silver in 7-10 days, call [phone] to schedule, [address] Current Hospital Diet Patient's current hospital diet: Clear Liquid Diet Discharge Diet Recommended Diet: Low Fiber Diet Pending Studies Studies pending at discharge: no Medical Emergencies . Who to Call and When: Medical Emergencies: If at any time you feel your situation is an emergency, please call 911 immediately. . Non-Emergent Contact Non-Emergency issues call your: Surgeon Call Non-Emergent contact if: you have a fever, temperature is above 101.5, you have any medication questions . "Provider Documentation" section prepared by Hossein Jones. . VTE Core Measure Inpt VTE Proph given/why not?: SCD's
[2017-09-26 07:46] VITALS: BP 134/84; PULSE 53; TEMP 36.6; O2SAT 95
[2017-09-26 08:15] VITALS: O2SAT 95
[2017-09-26] MEDS: FLUTICASONE HFA 110MCG INHALER INH SCH (08:42)
[2017-09-26] MEDS: ASPIRIN 81 MG ECTAB PO SCH (08:42)
--- NOTE | 2017-09-26 10:55 | NUR ---
ID: The pt. has demonstrated progress toward goals and readiness for discharge as demonstrated by: Pt. is A/Ox4, VSS., denies pain at this time, ambulating independently. Tolerated full liquid diet at breakfast advanced to reg for lunch. Discharge plan home w/o services. Encouraged to ring for assistance, use [employer], and cough and deep breath 10x/hr. Call [facility] within reach. See EMR for vitals and assessment details.
[2017-09-26] MEDS ORDERED: AMOXICILLIN/CLAVULANATE TAB 875 MG TAB PO ONE (11:45)
[2017-09-26] MEDS ORDERED: POTASSIUM CHLORIDE 20 MEQ TABCR PO ONE (11:45)
[2017-09-26 11:59] VITALS: BP 132/82; PULSE 51; TEMP 36.8; O2SAT 95
[2017-09-26 13:13] VITALS: BP 132/82; PULSE 51; TEMP 36.8; O2SAT 95
--- NOTE | 2017-09-29 14:39 | DISCHARGE SUMMARY ---
ATTENDING: Dr. Silver. PRIMARY DISCHARGE DIAGNOSIS: Diverticulitis with microperforation. SECONDARY DISCHARGE DIAGNOSES: 1. Hypertension. 2. Asthma. HOSPITAL COURSE: The patient is a 52-year-old male who presented to the Emergency Department with abdominal pain that began earlier in the day. His white count was 17,000. CT showed mid sigmoid diverticulitis with air in the mesentery and omentum consistent with a focal diverticular perforation. He did not have any peritoneal findings. He was admitted to surgery service and started on IV Zosyn and Flagyl. He improved over the next 24 hours. He was able to tolerate a small amount of clears. He did have some nausea which we felt may have been related to the Flagyl. Flagyl was discontinued after 72 hours when his white count started to improve. On hospital day #4, his nausea had resolved, he was able to tolerate an advancing diet. His white count had normalized and he had been afebrile. His abdomen was soft and nontender. He had been having multiple bowel movements. He was stable for discharge on oral antibiotics. DISCHARGE INSTRUCTIONS: Discharge home. Follow up with Dr. Silver in 1-2 weeks and will plan to schedule semi-elective sigmoid colectomy. DISCHARGE MEDICATIONS: Augmentin 875 mg p.o. b.i.d. x6 days. Resume home medications of albuterol HFA 2 puffs as needed, aspirin 81 mg daily, Flovent 2 puffs b.i.d., Zestoretic 20/12.5 mg daily, daily multivitamin, Crestor 10 mg daily, and vitamin E supplement. [facility]
--- NOTE | 2017-10-09 10:22 | Medical Consult ---
Consultation Date of Consultation: Oct 09, 2017. Attending Physician: Scot Silver M.D. Reason for Consultation: Diverticulitis History of Present Illness Patient presents to the ER on 09/22/17 due to lower quadrant abdominal pain that started earlier this AM. He was trying to have a bowel movement when the pain started. Denies nausea or vomiting. Reports he has had some fever and chills associated with his symptoms. He has been moving his bowels without trouble but states he has had some decreased urinary output. Denies diarrhea or blood in his stool. The pain has not gotten any better or worse. He has not tried to take anything for his pain. Reports he had a colonoscopy earlier this week on 09/15/17. At that time a polyp was found and biopsied. Path results were benign. CT abd/pelvis shows acute proximal to mid sigmoid diverticulitis. Denies previous abdominal surgeries. Past Medical/Surgical History Medical Problems: (1) Perforation of intestine due to diverticulitis of gastrointestinal tract Status: Acute Social History Smoking Status: Never Smoker Marital Status: Housing Status: lives with significant other Occupation Status: employed Allergies Coded Allergies: NO KNOWN DRUG ALLERGIES (Verified Allergy, Unknown, ., 09/22/17) Yellow Jacket (Verified Allergy, Unknown, THROAT SWELLING, 09/22/17) Review of Systems Constitutional: + fever, + chills, No sweats Respiratory: No shortness of breath Cardiovascular: No chest pain Abdomen: + pain (Lower quadrants below umbilicus), No nausea, No vomiting, No diarrhea Genitourinary - Male: No dysuria Physical Exam General Appearance: WD/WN, no apparent distress Head: normocephalic, atraumatic Eyes: normal inspection ENT: hearing grossly normal Neck: trachea midline Respiratory/Chest: no respiratory distress, no accessory muscle use Abdomen/GI: normal bowel sounds, no organomegaly, no pulsatile mass, + tenderness (RLQ, LLQ), + distended (Mild in lower quadrants) Neurologic/Psych: alert, normal mood/affect, oriented x 3 Assessment & Plan Acute proximal to mid sigmoid diverticulitis per CT abd/pelvis Moderate intrapelvic air within mesentery and omentum suggesting a focal diverticular perforation, no abscess or obstructive changes. No need for acute surgical intervention at this time. Will elect to proceed with conservative management. Will admit on our service. NPO except meds. Elevated WBC - IV Zosyn and IV Flaqyl started, IV zofran PRN, IV Morphine PRN. Please contact with questions or concerns.
--- NOTE | 2017-10-14 08:22 | HISTORY & PHYSICAL EXAMINATION ---
DATE OF ADMISSION: 09/22/2017 CHIEF COMPLAINT: Lower abdominal pain. HISTORY OF PRESENT ILLNESS: The patient is a 52-year-old male with lower abdominal pain that began this morning. He has a history of diverticulitis and had 3 attacks in the past, but these were more than 10 years ago. He felt fine last evening and ate regular food yesterday and his pain started relatively suddenly this morning. He had a colonoscopy last week and had a rectal polyp excised. His bowels have been sluggish since then, but he did have a bowel movement yesterday and this morning, but hard and relatively small amount. He has had some chills this afternoon. No fevers. He had seen Dr. Dejesus about 10 years ago for possible elective resection after his 3 attacks, but he decided not to go through with the surgery. He has not had any pain in the interim. PAST MEDICAL HISTORY: High cholesterol, hypertension, asthma and diverticulitis. PAST SURGICAL HISTORY: None. FAMILY HISTORY: History of hypertension and coronary artery disease. SOCIAL HISTORY: Denies tobacco use. He has a [employer] company and is typically slow in the winter months. CURRENT MEDICATIONS: Albuterol HFA 2 puffs every 6 hours as needed, aspirin 81 mg daily, Flovent 2 puffs b.i.d., Zestoretic 20/12.5 mg daily, daily multivitamin, Crestor 10 mg daily, and vitamin E 1 tablet daily. REVIEW OF SYSTEMS: GENERAL: Some chills. No fevers. GASTROINTESTINAL: He has had several previous colonoscopies including 2001 and then again about 7 years ago. Otherwise, as per HPI. OBJECTIVE: GENERAL: He appears in no acute distress. VITAL SIGNS: Temperature 36.5. Pulse was 74 on presentation and is 100 most recently. Respirations are 18, blood pressure 126/77, and pulse ox 97% on room air. HEENT: Unremarkable. HEART: Regular rate and rhythm. No murmurs. LUNGS: Clear to auscultation. Normal respiratory effort. ABDOMEN: Soft. Nondistended. Tenderness is localized more in the suprapubic area with some guarding. There is less tenderness in the left lower quadrant. Remainder of the abdomen was nontender. SKIN: Normal color, warm and dry. EXTREMITIES: Without edema. LABORATORY DATA: White count of 17,000 with a left shift, hemoglobin 15.1, hematocrit 43.0, and platelets 203,000. Sodium 140, potassium 3.6, BUN 15, creatinine 1.1, and glucose 94. IMAGING STUDIES: CT of the abdomen and pelvis shows acute proximal to mid sigmoid diverticulitis. There is moderate free intrapelvic air within the mesentery and omentum. There is no abscess collection. IMPRESSION: Diverticulitis with microperforation. PLAN: We will admit to surgery service and continue on IV antibiotics. He was already given a dose of Zosyn 4.5 grams in the ED. We will continue him on Zosyn and add Flagyl. Keep him n.p.o. except for meds and sips overnight. Hopefully, he will respond to conservative measures. Case was discussed with Dr. Silver.
[2017-10-17] MEDS ORDERED: VITA400C28 PO (09:38)
[2017-10-17] MEDS ORDERED: CETI10TA84 PO (09:38)
[2017-10-17] MEDS ORDERED: LISI-788 PO (09:38)
[2017-10-17] MEDS ORDERED: IBUP-103 PO (09:38)
[2017-10-17] MEDS ORDERED: FLVHFA110 INH (09:38)
== END 2017-09-26 14:03 | disposition home or self-care (01) | DRG 392 ==
LOC: C.EDB 11:26 → C.MSN 15:17 → ENRESERV 15:33
PROVIDERS: ADMIT Surgery; ATTEND Surgery
DX: K57.20 Diverticulitis of large intestine with perforation and abscess without bleeding (principal); I10 Essential (primary) hypertension; J45.909 Unspecified asthma, uncomplicated; E78.00 Pure hypercholesterolemia, unspecified; Z79.899 Other long term (current) drug therapy; Z79.82 Long term (current) use of aspirin; Z86.010 Personal history of colon polyps; Z87.19 Personal history of other diseases of the digestive system; Z82.49 Family history of ischemic heart disease and other diseases of the circulatory system

== ENCOUNTER 2017-10-23 05:05 | Inpatient (IN) | payer BC ==
[2017-10-17 09:39] VITALS: BMI 28.0
--- NOTE | 2017-10-17 10:05 | PAT Medication Instructions ---
Service Date Oct 17, 2017. Current Home Medication List Albuterol Hfa (Ventolin Hfa), 2 PUFFS INH BID PRN for Shortness of Breath Aspirin (Aspirin Ec), 81 MG PO QAM Cetirizine (Zyrtec), 10 MG PO QPM Fluticasone Propionate (Flovent Hfa), 2 PUFFS INH BID Ibuprofen Tab (Advil), 400 MG PO PRN Lisinopril/Hctz (Zestoretic 20MG/25MG), 1 TAB PO QPM Multiple Vitamin (Multivitamin), 1 TAB PO QAM Rosuvastatin Calcium (Crestor), 10 MG PO QPM Vitamin E (Vitamin E), 1 TAB PO DAILY Vitamin E (Alph-E), 400 UNITS PO QAM Medication Instructions For Your Scheduled Surgery - Check with surgeon for instructions: Ibuprofen Tab (Advil), 400 MG PO PRN Aspirin (Aspirin Ec), 81 MG PO QAM - Hold the following medications starting 10/18/16: Vitamin E (Vitamin E), 1 TAB PO DAILY Vitamin E (Alph-E), 400 UNITS PO QAM - Hold the following medications 24 hours prior to surgery: Lisinopril/Hctz (Zestoretic 20MG/25MG), 1 TAB PO QPM - Hold the following medications the morning of surgery: Multiple Vitamin (Multivitamin), 1 TAB PO QAM - Take the following medications the morning of surgery with a sip of water: Albuterol Hfa (Ventolin Hfa), 2 PUFFS INH BID PRN for Shortness of Breath (if needed) Fluticasone Propionate (Flovent Hfa), 2 PUFFS INH BID - Take the following medications as scheduled the night before surgery: Albuterol Hfa (Ventolin Hfa), 2 PUFFS INH BID PRN for Shortness of Breath (if needed) Rosuvastatin Calcium (Crestor), 10 MG PO QPM Fluticasone Propionate (Flovent Hfa), 2 PUFFS INH BID Cetirizine (Zyrtec), 10 MG PO QPM If you have any questions please call us at [phone] or [phone] or [phone]
[2017-10-17 11:57] LABS: BASO % 0.5 %; BASO ABS # 0.03 K/uL (0-0.2); EOS % 7.2 %; EOS ABS # 0.45 K/uL (0-0.5); HEMATOCRIT 42.5 % (42-52); HEMOGLOBIN 14.9 g/dL (14.0-18.0); IG# 0.01 K/uL (0.00-0.02); LYMPH % 32.9 %; LYMPH ABS # 2.05 K/uL (1.2-3.4); MEAN CELL VOLUME 88.9 fL (80-100); MEAN CORPUSCULAR HEMOGLOBIN 31.2 pg (25-34); MEAN CORPUSCULAR HGB CONC 35.1 g/dl (32-36); MEAN PLATELET VOLUME 10.6 fL (7.4-10.4); MONO % 6.6 %; MONO ABS # 0.41 K/uL (0.11-0.59); NEUT % 52.6 %; NEUT ABS # 3.29 K/uL (1.4-6.5); PLATELET COUNT 297 K/uL (130-400); RED CELL DISTRIBUTION WIDTH CV 13.2 % (11.5-14.5); RED CELL DISTRIBUTION WIDTH SD 43.4 fL (36.4-46.3); WHITE BLOOD COUNT 6.24 K/uL (4.8-10.8)
[2017-10-17 12:25] LABS: ALBUMIN 3.8 gm/dl (3.4-5.0); ALKALINE PHOSPHATASE 66 U/L (45-117); ALT/SGPT 32 U/L (12-78); AST/SGOT 15 U/L (15-37); TOTAL PROTEIN 8.2 gm/dl (6.4-8.2)
[~2017-10-23] VITALS: Ht 162.6 cm; Wt 75.3 kg
[2017-10-23] VITALS (11 sets, daily range): BP systolic 111–135; BP diastolic 63–78; PULSE 60–95; TEMP 36.5–37.2; O2SAT 93–97; Ht 162.6 cm; Wt 75.3 kg
[~2017-10-23 05:05] MED LIST changes: +CETI10TA84 PO; +IBUP-103 PO; -LISI-787 PO; +LISI-788 PO; +VITA400C28 PO
[2017-10-23] MEDS ORDERED: LACTATED RINGER'S 1000ML 1,000 ML IV SCH (06:00)
[2017-10-23] MEDS ORDERED: ROCURONIUM BROMIDE 10 MG/ML 5 ML VIAL IV ONE (06:21)
[2017-10-23] MEDS ORDERED: LIDOCAINE HCL 2% 2 ML VIAL (20MG/ML) ONE (06:21)
[2017-10-23] MEDS ORDERED: DEXAMETHASONE SOD INJ 4 MG/ML VIAL ONE ×2 (06:21→07:17)
[2017-10-23] MEDS ORDERED: PROPOFOL IV EMULSION 10 MG/ML 20 ML VIAL IV ONE (06:21)
[2017-10-23] MEDS ORDERED: ONDANSETRON INJ 2 MG/ML 2 ML VIAL ONE ×2 (06:21→09:31)
[2017-10-23] MEDS ORDERED: MIDAZOLAM HCL 1 MG/ML 2ML VIAL ONE (06:21)
[2017-10-23] MEDS ORDERED: FENTANYL CITRATE INJ 50 MCG/1 ML 2 ML VIAL ONE ×3 (06:22→09:32)
[2017-10-23] MEDS ORDERED: CISATRACURIUM BESYLATE IV SOLN 2 MG/ML 10 ML VIAL ONE (06:29)
[2017-10-23] MEDS ORDERED: SUCCINYLCHOLINE CHLORIDE 20 MG/ML 10 ML VIAL IV ONE (06:29)
[2017-10-23] MEDS ORDERED: SODIUM CHLORIDE 0.9% INJ 10 ML VIAL ONE (06:30)
--- NOTE | 2017-10-23 06:35 | History & Physical Bridge Note ---
H&P Re-Evaluation Bridge Note: I have examined the patient, reviewed the History & Physical and in the interval since the performance of the History & Physical I have noted the following changes of clinical significance: No changes noted nauseated suince starting po prep all questions answered abd neg family at bedside
[2017-10-23] MEDS ORDERED: BUPIVACAINE 0.5 % 5 MG/1 ML MPF 30ML VIAL ONE (07:02)
[2017-10-23] MEDS ORDERED: CEFOXITIN SOD 1 GM VIAL ONE (07:08)
[2017-10-23] MEDS ORDERED: HYDROmorphone INJ 2 MG/ML SYR/VIAL ONE (07:20)
[2017-10-23] MEDS ORDERED: ACETAMINOPHEN 1000 MG/100 ML IV IV ONE (07:36)
[2017-10-23] MEDS ORDERED: GLYCOPYRROLATE INJ 0.2 MG/ML VIAL ONE (09:19)
[2017-10-23] MEDS ORDERED: NEOSTIGMINE METHYLSULFATE 5 MG/5 ML SYR ONE (09:19)
--- NOTE | 2017-10-23 09:47 | [facility] Post Operative Brief Note ---
Immediate Operative Summary Operative Date Oct 23, 2017. Pre-Operative Diagnosis Diverticulosis of Colon rec diverticulitis Post-Operative Diagnosis Diverticulosis of Colon same Procedure(s) Performed Laparoscopic Assisted Sigmoid Colon Resection Surgeon Dr. Silver [place] Surgeon(s) RAJESH Tristan Estimated Blood Loss 150 ml Findings 10 cm segment of significant induration sigmoid colon Specimens Culture--Urine (catheter)--for routine culture and sensitivity--sent to lab at 0745 A. Sigmoid Colon Drains 19 dell pelvis and sub cut dell drain
[2017-10-23] MEDS ORDERED: FLUMAZENIL 0.1 MG/1 ML 10 ML VIAL IV PRN (10:00)
[2017-10-23] MEDS ORDERED: ONDANSETRON INJ 2 MG/ML 2 ML VIAL IV PRN (10:00)
[2017-10-23] MEDS ORDERED: EpHEDrine SULFATE INJ 50 MG/ML AMP IV PRN (10:00)
[2017-10-23] MEDS ORDERED: LABETALOL HCL IV 5 MG/ML 20ML IV PRN (10:00)
[2017-10-23] MEDS ORDERED: ATROPINE SULFATE 0.1 MG/ML 5ML SYR IV PRN (10:00)
[2017-10-23] MEDS ORDERED: PROMETHAZINE HCL INJ 12.5 MG in SODIUM CHLORIDE 0.9% 50ML 50 ML IV PRN (10:00)
[2017-10-23] MEDS ORDERED: NALOXONE HCL 0.4 MG/1 ML VIAL/CARP IV PRN (10:00)
[2017-10-23] MEDS ORDERED: LABETALOL HCL IV 5 MG/ML 20ML IV ONE (10:05)
[2017-10-23] MEDS ORDERED: HYDROmorphone INJ 1 MG/ML SYR ONE (10:07)
[2017-10-23] MEDS: HYDROmorphone INJ 1 MG/ML SYR IV PRN ×4 (10:08→10:23)
[2017-10-23] MEDS ORDERED: ACETAMINOPHEN IV 100 ML IV PRN (10:15)
--- NOTE | 2017-10-23 10:19 | OPERATIVE REPORT ---
DATE OF OPERATION: 10/23/2017 SURGEON: Scot Silver MD. ELECTRICAL AND INSTRUMENTATION MANAGER: Hossein Jones PA-C. PREOPERATIVE DIAGNOSIS: Recurrent diverticulitis. POSTOPERATIVE DIAGNOSIS: Same. PROCEDURE: Laparoscopic assisted sigmoid colon resection with primary side-to-end anastomosis. SUMMARY: The patient was admitted in the beginning of September after he had had a colonoscopy routinely and found some diverticulitis. The patient came in through the Emergency Room about 4 days later with a perforation and a significant free air and we were able to manage him nonoperatively at that time and he is admitted for elective resection. He had had a similar episode approximately 10 years ago. At that time was recommended surgery, but the patient did not want to proceed with it. At this point, he underwent general endotracheal anesthesia and the patient was placed on lithotomy position and a Bob catheter was inserted. The extremities were properly padded. At this point, a timeout was had. A small incision was made supraumbilically sufficient enough to place a Veress needle followed by CO2 followed by 5 mm trocar. Point of entry inspected and identified. At this point, we could see that the patient had some inflammation. The distal sigmoid was redundant actually, was adherent to the right medial umbilical ligament. On the left side, similarly attached to the lateral wall. We placed a 5 mm right lower quadrant and 5 mm left flank port. Then we were able to identify the distal descending and sigmoid colon proximally and it appeared free of any gross disease but a significant amount of inflammatory response was adherent going down the cul-de-sac area. We were able to free it mostly blunt dissection, we did incise the white line of Toldt on the left side, stayed away from the ureter and stayed more closely to the bowel wall. The patient had a significant amount of fatty tissue in the area and mostly going down towards the fat was significantly indurated almost like dirty fat. We did most of our dissection bluntly. At this point, we were below the sigmoid area but still the inflammatory mass was quite hard. I elected at this point then to use the harmonic scalpel and created a window just at the inferior mesenteric artery area down towards the sigmoid colon area. We were able to create that window elevate the area, but significant tissue was there that I felt that it needed an incision sufficient enough to just to take it out. Therefore, at this point, we were around the bowel wall, I did not do an intracorporeal division of the sigmoid colon. We converted to an open procedure to make a small incision sufficiently enough that we were able then to identify the point of dissection of mesentery where we had to mobilize pretty much the whole area. There was 1 artery going down towards the distal aspect of the mesentery right at the pelvic brim that we ligated with 2-0 silk. We then used the MILADIS stapler to divide the bowel wall at that area and then used blunt dissection to briefly free up this whole hard indurated area quite significant down below it where we thought was near to the rectum. I placed a right angle clamp in that area and then divided and removed the specimen which was significantly indurated. We knew by colonoscopy that the patient had no evidence of cancer. This was all colonic diverticular disease. Having freed this, we checked the area for hemostasis. I did identify the left ureter and we were well away from it. We had enough mobility in the descending colon; therefore we freshened up the initial line of resection in the distal descending colon by using another firing of this TIA and everted that area with 3-0 silk suture. We then did a side-to-end anastomosis at the distal colon and most of the rectum was patent and there was no induration except some of the mesentery. We did with 3-0 silk outer layer, 3-0 chromic inner layer anastomosis and this was satisfactory. The area was then checked for hemostasis and appeared satisfactory. We irrigated, then placed a Anthony drain through a stab wound in left lower quadrant down to the cul-de-sac. We closed the wound by closing the preperitoneal fat below the umbilical area with #1 chromic suture and we reapproximated the fascia with interrupted #1 PDS. The patient did not have a very nice definitive lower midline tissue. It seemed like the fibers were crossing over. Subcutaneous tissue irrigated. We placed a piece of the Anthony drain down in the subQ to attach to the skin edges proximally and distally with 2-0 silk suture. Kelsey were used for the incision. Dressing was applied. The procedure was tolerated well by the patient. Estimated blood loss approximately 150 mL. The patient was taken to recovery in good condition. I attest to the content of the Intraoperative Record and any orders documented therein. Any exception s are noted below.
--- NOTE | 2017-10-23 10:56 | Anesthesiology Progress Note ---
Anesthesia Post Op Note Date & Time Oct 23, 2017 at 10:56 Vital Signs Pain Intensity: 3 Vital Signs Past 12 Hours Date Time Temp Pulse Resp B/P (MAP) Pulse Ox O2 Delivery O2 Flow Rate FiO2 10/23/17 10:26 83 18 10/23/17 10:26 81 18 95 10/23/17 10:25 134/80 10/23/17 10:21 75 16 10/23/17 10:21 75 16 98 10/23/17 10:20 86 11 10/23/17 10:20 86 11 10/23/17 10:20 87 11 128/89 97 10/23/17 10:20 87 11 128/89 97 10/23/17 10:15 91 15 147/80 95 10/23/17 10:15 91 15 147/80 95 10/23/17 10:15 91 15 10/23/17 10:15 91 15 10/23/17 10:10 71 10 10/23/17 10:10 72 10 142/71 96 10/23/17 10:10 72 10 142/71 96 10/23/17 10:10 71 10 10/23/17 10:05 83 10 131/77 98 10/23/17 10:05 83 10 10/23/17 10:05 83 10 10/23/17 10:05 83 10 131/77 98 10/23/17 10:00 92 11 146/78 94 10/23/17 10:00 92 11 10/23/17 10:00 36.6 91 14 146/78 (95) 96 Oxymask 10 10/23/17 10:00 92 11 146/78 94 10/23/17 10:00 92 11 10/23/17 05:53 36.6 78 18 135/78 97 Room Air Notes Mental Status: alert / awake / arousable, participated in evaluation Pt Amnestic to Procedure: Yes Nausea / Vomiting: adequately controlled Pain: adequately controlled Airway Patency, RR, SpO2: stable & adequate BP & HR: stable & adequate Hydration State: stable & adequate Anesthetic Complications: no major complications apparent
[2017-10-23] MEDS: PROMETHAZINE HCL INJ 12.5 MG in SODIUM CHLORIDE 0.9% 50ML 50 ML IV PRN ×2 (12:00→19:13)
[2017-10-23] MEDS ORDERED: NURSING VERBAL MED ORDER ONE (12:00)
[2017-10-23] MEDS: LACTATED RINGER'S 1000ML 1,000 ML IV SCH ×2 (12:47→19:13)
[2017-10-23 12:54] LABS: INR 1.1 (0.9-1.1); PTT PATIENT 22.3 SECONDS (21.0-31.0)
[2017-10-23] MEDS: CEFOXITIN IV 2,000 MG in DEXTROSE 5% 50ML 50 ML IV SCH ×2 (13:05→18:32)
[2017-10-23] MEDS: MoRPHine SULFATE 4 MG/ML 1 ML CARP\\VIAL IV PRN ×3 (14:23→22:32)
[2017-10-23] MEDS: ONDANSETRON INJ 2 MG/ML 2 ML VIAL IV PRN (16:19)
[2017-10-23] MEDS: ACETAMINOPHEN 325 MG TAB PO PRN (17:12)
[2017-10-23] MEDS: ALBUTEROL HFA 8 GM INHALER INH SCH (20:37)
[2017-10-23] MEDS: FLUTICASONE HFA 110MCG INHALER INH SCH (20:37)
[2017-10-23] MEDS: HEPARIN SOD 5000 UNIT/0.5 ML CARP SQ SCH (20:43)
[2017-10-24] MEDS: CEFOXITIN IV 2,000 MG in DEXTROSE 5% 50ML 50 ML IV SCH (00:08)
[2017-10-24] MEDS: ONDANSETRON INJ 2 MG/ML 2 ML VIAL IV PRN ×4 (00:09→18:29)
[2017-10-24] MEDS: MoRPHine SULFATE 4 MG/ML 1 ML CARP\\VIAL IV PRN ×6 (00:10→18:30)
[2017-10-24] MEDS: LACTATED RINGER'S 1000ML 1,000 ML IV SCH ×3 (02:37→17:53)
[2017-10-24 03:31] VITALS: BP 114/69; PULSE 49; TEMP 36.9; O2SAT 96
[2017-10-24 06:34] VITALS: PULSE 68
[2017-10-24 07:10] VITALS: BP 114/73; PULSE 52; TEMP 37.1; O2SAT 94
[2017-10-24 07:15] LABS: HEMATOCRIT 33.4 % (42-52); HEMOGLOBIN 11.6 g/dL (14.0-18.0); LYMPH % 5.9 %; LYMPH ABS # 1.27 K/uL (1.2-3.4); MEAN CELL VOLUME 87.2 fL (80-100); MEAN CORPUSCULAR HEMOGLOBIN 30.3 pg (25-34); MEAN CORPUSCULAR HGB CONC 34.7 g/dl (32-36); MEAN PLATELET VOLUME 10.3 fL (7.4-10.4); MONO % 3.5 %; MONO ABS # 0.75 K/uL (0.11-0.59); NEUT % 90.1 %; NEUT ABS # 19.44 K/uL (1.4-6.5); PLATELET COUNT 191 K/uL (130-400); RED CELL DISTRIBUTION WIDTH CV 13.5 % (11.5-14.5); RED CELL DISTRIBUTION WIDTH SD 43.3 fL (36.4-46.3); WHITE BLOOD COUNT 21.56 K/uL (4.8-10.8)
[2017-10-24 07:43] LABS: CALCIUM 8.3 mg/dl (8.5-10.1); CREATININE 0.93 mg/dl (0.60-1.40); POTASSIUM 4.4 mmol/L (3.5-5.1)
[2017-10-24] MEDS: HEPARIN SOD 5000 UNIT/0.5 ML CARP SQ SCH ×2 (08:32→21:08)
[2017-10-24] MEDS: ALBUTEROL HFA 8 GM INHALER INH SCH ×2 (08:33→21:09)
[2017-10-24] MEDS: FLUTICASONE HFA 110MCG INHALER INH SCH ×2 (08:33→21:09)
--- NOTE | 2017-10-24 08:42 | Anesthesiology Progress Note ---
Anesthesia Post Op Note Date & Time Oct 24, 2017 at 08:42 Vital Signs Pain Intensity: 7.0 Vital Signs Past 12 Hours Date Time Temp Pulse Resp B/P (MAP) Pulse Ox O2 Delivery O2 Flow Rate FiO2 10/24/17 07:10 37.1 52 16 114/73 (87) 94 Room Air 10/24/17 06:34 68 16 10/24/17 03:31 36.9 49 15 114/69 (84) 96 Room Air 10/23/17 23:55 94 Room Air 10/23/17 23:32 37.1 63 15 114/68 (83) 94 Room Air Notes Mental Status: alert / awake / arousable, participated in evaluation Pt Amnestic to Procedure: Yes Nausea / Vomiting: adequately controlled Pain: adequately controlled Airway Patency, RR, SpO2: stable & adequate BP & HR: stable & adequate Hydration State: stable & adequate Anesthetic Complications: no major complications apparent
--- NOTE | 2017-10-24 09:37 | SURGERY PROGRESS NOTE ---
DATE: 10/24/2017 SUBJECTIVE: Emigdio is 1st postoperative day status post laparoscopic assisted colon resection for significant diverticular disease. The patient is doing well. He is resting comfortably. He is having no nausea as he had preoperatively. He is getting antinausea medicine every 6 hours. His is at bedside. The intraoperative findings were discussed with the patient. OBJECTIVE: Last vitals showed a temperature of 37.1, pulse 52, respirations 16, blood pressure 114/73, O2 sats 94 on room air. I&O, he had 1000 mL urine overnight. His Anthony drainage is minimal, serous, slightly sanguineous. There is a little tinge of blood in the incision. He does have a drain in the incision suprapubically. LABORATORY DATA: His white count is 21.56 with a significant left shift. I think this is all related significant response we had to the massive inflammatory tissue that he had. His WBC is 11.69. His BUN is 15, creatinine 0.93. ASSESSMENT AND PLAN: At this point we will discontinue the sequential compression stockings as the patient is receiving subcutaneous heparin. We will start him on clear liquid and increase ambulation. I will leave both drains in for now.
[2017-10-24 11:30] VITALS: BP 130/74; PULSE 68; TEMP 37.2; O2SAT 95
[2017-10-24] MEDS ORDERED: KETOROLAC TROMETHAMINE 30 MG/ML VIAL IV ONE (13:21)
[2017-10-24 15:45] VITALS: BP 129/78; PULSE 58; TEMP 36.8; O2SAT 97
[2017-10-24] MEDS: PROMETHAZINE HCL INJ 12.5 MG in SODIUM CHLORIDE 0.9% 50ML 50 ML IV PRN (21:09)
[2017-10-24 22:54] VITALS: BP 122/71; PULSE 54; TEMP 36.6; O2SAT 94
[2017-10-25] MEDS: LACTATED RINGER'S 1000ML 1,000 ML IV SCH ×3 (03:52→23:24)
[2017-10-25] MEDS: MoRPHine SULFATE 4 MG/ML 1 ML CARP\\VIAL IV PRN ×2 (05:07→13:19)
[2017-10-25] MEDS: ONDANSETRON INJ 2 MG/ML 2 ML VIAL IV PRN ×3 (05:07→19:49)
[2017-10-25 06:47] VITALS: BP 127/75; PULSE 53; TEMP 36.8; O2SAT 94
[2017-10-25] MEDS: FLUTICASONE HFA 110MCG INHALER INH SCH ×2 (08:49→21:07)
[2017-10-25] MEDS: ALBUTEROL HFA 8 GM INHALER INH SCH ×2 (08:49→21:07)
[2017-10-25] MEDS: HEPARIN SOD 5000 UNIT/0.5 ML CARP SQ SCH ×2 (08:55→21:16)
[2017-10-25 11:03] LABS: CALCIUM 7.9 mg/dl (8.5-10.1); CREATININE 1.11 mg/dl (0.60-1.40); POTASSIUM 3.6 mmol/L (3.5-5.1)
[2017-10-25 11:08] LABS: BASO % 0.1 %; BASO ABS # 0.01 K/uL (0-0.2); HEMATOCRIT 32.5 % (42-52); HEMOGLOBIN 10.9 g/dL (14.0-18.0); IG# 0.06 K/uL (0.00-0.02); LYMPH % 19.1 %; LYMPH ABS # 2.05 K/uL (1.2-3.4); MEAN CELL VOLUME 89.8 fL (80-100); MEAN CORPUSCULAR HEMOGLOBIN 30.1 pg (25-34); MEAN CORPUSCULAR HGB CONC 33.5 g/dl (32-36); MEAN PLATELET VOLUME 10.4 fL (7.4-10.4); MONO % 4.9 %; MONO ABS # 0.52 K/uL (0.11-0.59); NEUT % 75.3 %; NEUT ABS # 8.08 K/uL (1.4-6.5); PLATELET COUNT 171 K/uL (130-400); RED CELL DISTRIBUTION WIDTH CV 13.9 % (11.5-14.5); RED CELL DISTRIBUTION WIDTH SD 46.2 fL (36.4-46.3); WHITE BLOOD COUNT 10.72 K/uL (4.8-10.8)
--- NOTE | 2017-10-25 13:00 | Surgery Progress Note ---
Surgery Progress Note Date of Service Oct 25, 2017. Subjective + feeling well pt is doing fine, passed gas, he tolerated clear diet, SANAZ minimal, Objective Vital Signs: Date Time Temp Pulse Resp B/P (MAP) Pulse Ox O2 Delivery O2 Flow Rate FiO2 10/25/17 07:50 Room Air 10/25/17 06:47 36.8 53 19 127/75 (92) 94 Room Air 10/24/17 22:54 36.6 54 16 122/71 (88) 94 Room Air 10/24/17 20:02 Room Air 10/24/17 15:45 36.8 58 18 129/78 (95) 97 Room Air Physical Exam: SANAZ drainage General Appearance: WD/WN, no apparent distress Head: normocephalic Neck: supple, no adenopathy Respiratory/Chest: chest non-tender, lungs clear, normal breath sounds Cardiovascular: regular rate, rhythm, no edema, no gallop, no JVD, no murmur Abdomen: normal bowel sounds, non tender, non distended, soft Incision(s): clean, dry, intact (one drainage tube at lower incision) Extremities: normal range of motion, non-tender, normal inspection Laboratory Results: Results Past 24 Hours Test 10/25/17 10:05 Range/Units White Blood Count 10.72 4.8-10.8 K/uL Red Blood Count 3.62 4.7-6.1 M/uL Hemoglobin 10.9 14.0-18.0 g/dL Hematocrit 32.5 42-52 % Mean Corpuscular Volume 89.8 80-100 fL Mean Corpuscular Hemoglobin 30.1 25-34 pg Mean Corpuscular Hemoglobin Concent 33.5 32-36 g/dl Platelet Count 171 130-400 K/uL Mean Platelet Volume 10.4 7.4-10.4 fL Neutrophils (%) (Auto) 75.3 % Lymphocytes (%) (Auto) 19.1 % Monocytes (%) (Auto) 4.9 % Eosinophils (%) (Auto) 0.0 % Basophils (%) (Auto) 0.1 % Neutrophils # (Auto) 8.08 1.4-6.5 K/uL Lymphocytes # (Auto) 2.05 1.2-3.4 K/uL Monocytes # (Auto) 0.52 0.11-0.59 K/uL Eosinophils # (Auto) 0.00 0-0.5 K/uL Basophils # (Auto) 0.01 0-0.2 K/uL RDW Standard Deviation 46.2 36.4-46.3 fL RDW Coefficient of Variation 13.9 11.5-14.5 % Immature Granulocyte % (Auto) 0.6 % Immature Granulocyte # (Auto) 0.06 0.00-0.02 K/uL Sodium Level 139 136-145 mmol/L Potassium Level 3.6 3.5-5.1 mmol/L Chloride Level 105 98-107 mmol/L Carbon Dioxide Level 28 21-32 mmol/L Anion Gap 6.0 3-11 mmol/L Blood Urea Nitrogen 13 7-18 mg/dl Creatinine 1.11 0.60-1.40 mg/dl Est Creatinine Clear Calc Drug Dose 71.5 ml/min Estimated GFR () 87.4 Estimated GFR (Non- 75.4 BUN/Creatinine Ratio 11.8 10-20 Random Glucose 81 70-99 mg/dl Calcium Level 7.9 8.5-10.1 mg/dl Assessment & Plan doing fine, tolerated clear diet may D/C tomorrow, D/C home tomorrow, will F/U
[2017-10-25 15:16] VITALS: BP 122/78; PULSE 54; TEMP 37.1; O2SAT 95
[2017-10-25] MEDS: KETOROLAC TROMETHAMINE 30 MG/ML VIAL IV PRN ×2 (15:39→22:24)
[2017-10-25] MEDS: ACETAMINOPHEN 325 MG TAB PO PRN (19:49)
[2017-10-25 23:08] VITALS: BP 117/72; PULSE 53; TEMP 37; O2SAT 96
[2017-10-26] MEDS: MoRPHine SULFATE 4 MG/ML 1 ML CARP\\VIAL IV PRN ×5 (01:37→21:23)
[2017-10-26 07:32] VITALS: BP 142/83; PULSE 51; TEMP 36.6; O2SAT 96
[2017-10-26] MEDS: ONDANSETRON INJ 2 MG/ML 2 ML VIAL IV PRN ×2 (07:49→13:32)
[2017-10-26 07:51] LABS: BASO % 0.1 %; BASO ABS # 0.01 K/uL (0-0.2); EOS % 1.6 %; EOS ABS # 0.12 K/uL (0-0.5); HEMATOCRIT 34.1 % (42-52); HEMOGLOBIN 11.5 g/dL (14.0-18.0); IG# 0.02 K/uL (0.00-0.02); LYMPH % 33.6 %; LYMPH ABS # 2.58 K/uL (1.2-3.4); MEAN CELL VOLUME 89.7 fL (80-100); MEAN CORPUSCULAR HEMOGLOBIN 30.3 pg (25-34); MEAN CORPUSCULAR HGB CONC 33.7 g/dl (32-36); MEAN PLATELET VOLUME 10.5 fL (7.4-10.4); MONO % 6.1 %; MONO ABS # 0.47 K/uL (0.11-0.59); NEUT % 58.3 %; NEUT ABS # 4.47 K/uL (1.4-6.5); PLATELET COUNT 182 K/uL (130-400); RED CELL DISTRIBUTION WIDTH CV 13.8 % (11.5-14.5); RED CELL DISTRIBUTION WIDTH SD 45.6 fL (36.4-46.3); WHITE BLOOD COUNT 7.67 K/uL (4.8-10.8)
[2017-10-26 08:28] LABS: CALCIUM 8.3 mg/dl (8.5-10.1); CREATININE 0.92 mg/dl (0.60-1.40); POTASSIUM 3.5 mmol/L (3.5-5.1)
[2017-10-26] MEDS: HEPARIN SOD 5000 UNIT/0.5 ML CARP SQ SCH ×2 (09:13→19:27)
[2017-10-26] MEDS: ALBUTEROL HFA 8 GM INHALER INH SCH ×2 (09:14→21:23)
[2017-10-26] MEDS: FLUTICASONE HFA 110MCG INHALER INH SCH ×2 (09:14→21:23)
[2017-10-26] MEDS: LACTATED RINGER'S 1000ML 1,000 ML IV SCH ×2 (09:14→19:20)
[2017-10-26 15:46] VITALS: BP 146/86; PULSE 63; TEMP 37; O2SAT 98
[2017-10-26 16:00] VITALS: O2SAT 98
[2017-10-26] MEDS: KETOROLAC TROMETHAMINE 30 MG/ML VIAL IV PRN (16:57)
[2017-10-26 22:56] VITALS: BP 128/74; PULSE 60; TEMP 37; O2SAT 95
[2017-10-27] MEDS: KETOROLAC TROMETHAMINE 30 MG/ML VIAL IV PRN (03:02)
[2017-10-27] MEDS: LACTATED RINGER'S 1000ML 1,000 ML IV SCH (03:59)
[2017-10-27 07:16] VITALS: BP 120/74; PULSE 57; TEMP 37; O2SAT 92
--- NOTE | 2017-10-27 07:58 | Surgery Progress Note ---
Surgery Progress Note Date of Service Oct 27, 2017. Subjective Post OP Day: 4 + feeling well, + bowel movement (small), + flatus, + diet (clears), No nausea Objective Vital Signs: Date Time Temp Pulse Resp B/P (MAP) Pulse Ox O2 Delivery O2 Flow Rate FiO2 10/27/17 07:16 37.0 57 16 120/74 (89) 92 Room Air 10/26/17 23:40 Room Air 10/26/17 22:56 37.0 60 16 128/74 (92) 95 Room Air 10/26/17 16:00 98 Room Air 10/26/17 15:46 37.0 63 16 146/86 (106) 98 Room Air 10/26/17 08:49 Room Air Physical Exam: Anthony drainage (10 cc) Abdomen: non distended, soft Incision(s): clean, no erythema, drainage (from subQ drain) Assessment & Plan s/p lap sigmoid colectomy advance to full liquids start po analgesics heplock IV subQ drain removed seen with Dr. Silver
[2017-10-27] MEDS ORDERED: OXYCODONE/ACETAMINOPHEN 5-325 TAB PO PRN (08:00)
[2017-10-27] MEDS: FLUTICASONE HFA 110MCG INHALER INH SCH ×2 (08:03→20:56)
[2017-10-27] MEDS: ALBUTEROL HFA 8 GM INHALER INH SCH ×2 (08:04→20:56)
[2017-10-27] MEDS: HEPARIN SOD 5000 UNIT/0.5 ML CARP SQ SCH ×2 (08:07→20:58)
--- NOTE | 2017-10-27 09:01 | SURGERY PROGRESS NOTE ---
DATE: 10/27/2017 SUBJECTIVE: Emigdio is 4th postoperative day status post laparoscopic assisted sigmoid colon resection for diverticular disease. Overall, he is doing well. His last vitals showed a temperature of 37, pulse 57, respirations 16, blood pressure 120/74, O2 sats 92 on room air. I&O is fairly balanced. He said he had a few bowel movements. He has been on clear liquid diet, though he certainly can advance to a more substantial diet. His abdomen is completely benign. The lower midline incision, the drain was removed and it feels intact. The Nicolas-Salgado drainage is still intact, only 10 mL. At this point, the patient would like to stay until tomorrow until being discharged. I would probably like to have more of a diet and move his bowels more regularly. The path report is still pending. The is at the bedside.
[2017-10-27] MEDS: OXYCODONE/ACETAMINOPHEN 5-325 TAB PO PRN ×3 (09:24→19:08)
[2017-10-27 15:45] VITALS: BP 124/77; PULSE 64; TEMP 36.7; O2SAT 94
[2017-10-27] MEDS ORDERED: NURSING VERBAL MED ORDER ONE ×2 (22:00)
[2017-10-27 22:58] VITALS: BP 126/73; PULSE 64; TEMP 37; O2SAT 94
[2017-10-28] MEDS: OXYCODONE/ACETAMINOPHEN 5-325 TAB PO PRN ×2 (00:18→09:29)
--- NOTE | 2017-10-28 06:49 | SURGERY PROGRESS NOTE ---
DATE: 10/28/2017 Emigdio feels fine and he is ready to go home now. He had a good day yesterday. He is alert, coherent and in no distress. The path report was discussed with the patient. His last vitals showed a temperature of 37, pulse 64, respirations 18, blood pressure 126/73, O2 sats 94 on room air. His abdomen is completely benign. The incision looks fine. He has a little scab on the distal aspect of his lower midline incision which we will followup after he showers. The Anthony drain is only 3 mL of serosanguineous. We will remove it before discharge today. We will get back and check on him later and make appropriate recommendations on discharge.
[2017-10-28 07:04] VITALS: BP 114/79; PULSE 65; TEMP 36.5; O2SAT 94
[2017-10-28] MEDS: HEPARIN SOD 5000 UNIT/0.5 ML CARP SQ SCH (08:00)
[2017-10-28] MEDS ORDERED: OXYC-57 PO (09:04)
--- NOTE | 2017-10-28 09:05 | Discharge Instructions ---
Discharge Instructions Date of Service Oct 28, 2017. Admission Reason for Admission: Diverticulosis Of Colon Discharge Discharge Diagnosis / Problem: sigmoid colon resection Discharge Goals Goal(s): Improve disease control Activity Recommendations Activity Limitations: as noted below Lifting Limitations: no more than 10 pounds Shower/Bathe: no limitations Driving or Machine Use: resume 3 days after discharge . Instructions / Follow-Up Instructions / Follow-Up Dr. Silver's office in 1 week, call [phone] to schedule Current Hospital Diet Patient's current hospital diet: Low Fat Diet Discharge Diet Recommended Diet: Low Fiber Diet, Low Fat Diet Procedures Procedures Performed: Laparoscopic Assisted Sigmoid Colon Resection Pending Studies Studies pending at discharge: no Medical Emergencies . Who to Call and When: Medical Emergencies: If at any time you feel your situation is an emergency, please call 911 immediately. . Non-Emergent Contact Non-Emergency issues call your: Surgeon Call Non-Emergent contact if: you have a fever, temperature is above 101.5, your pain is not controlled, wound has increased drainage, wound has increased redness, wound has increased pain, you have any medication questions . "Provider Documentation" section prepared by Hossein Jones. . VTE Core Measure Inpt VTE Proph given/why not?: Unfractionated heparin SQ, SCD's [place] Drug Monitoring Program Search Results: no issues identified
[2017-10-28] MEDS: ALBUTEROL HFA 8 GM INHALER INH SCH (09:29)
[2017-10-28] MEDS: FLUTICASONE HFA 110MCG INHALER INH SCH (09:29)
[2017-10-28 10:19] VITALS: BP 114/79; PULSE 65; TEMP 36.5; O2SAT 94
== END 2017-10-28 13:30 | disposition home or self-care (01) | DRG 331 ==
LOC: C.ACU 05:05 → C.MSW 06:30 → EEVIPCON 06:30 → ENRESERV 10:38
PROVIDERS: ADMIT Surgery; ATTEND Surgery
PROC: 0DTN0ZZ Resection of Sigmoid Colon, Open Approach (ICD-10-PCS; principal; 2017-10-23 07:00)
DX: K57.30 Diverticulosis of large intestine without perforation or abscess without bleeding (principal); J45.909 Unspecified asthma, uncomplicated; I10 Essential (primary) hypertension; E78.5 Hyperlipidemia, unspecified; Z79.899 Other long term (current) drug therapy; Z79.82 Long term (current) use of aspirin; Z82.49 Family history of ischemic heart disease and other diseases of the circulatory system; Z83.49 Family history of other endocrine, nutritional and metabolic diseases

== ENCOUNTER → 2017-12-26 | Outpatient (CLI) | payer BC ==
[~2017-12-26] MED LIST changes: +OXYC-57 PO; -VITA1TAB4 PO
--- NOTE | 2017-12-26 08:13 | DIAGNOSTIC IMAGING REPORT ---
GALLBLADDER-ABD LIMITED CLINICAL HISTORY: 52 years-old Male presenting with R10.13 Abdominal pain, [id number]. TECHNIQUE: Real-time grayscale and limited color Doppler ultrasound imaging of the abdomen limited to the right upper quadrant was performed. COMPARISON: CT from 09/22/2017. FINDINGS: Pancreas: Visualized portions of the pancreatic head and body normal. Liver: Normal echogenicity and echotexture. The liver measures 13.6 cm in maximal sagittal dimension. Multiple anechoic lesions with posterior acoustic enhancement consistent with hepatic cysts or hamartomas. Main portal vein patent with normal directional flow. Biliary: No intrahepatic biliary ductal dilatation. Common bile duct measures up to 5 mm in diameter. Gallbladder: No evidence of gallstones, gallbladder wall thickening, gallbladder distention, or pericholecystic fluid or inflammatory change. Right kidney: Normal in appearance. No hydronephrosis. Ascites: None. IMPRESSION: No cholelithiasis or biliary ductal dilatation. Electronically signed by: Óscar Cerna M.D. 12/26/2017 8:12 AM Dictated Date/Time: 12/26/2017 8:11 AM
== END | disposition home or self-care (01) ==
LOC: C.ULTR 07:23
PROVIDERS: ATTEND Surgery
DX: R10.13 Epigastric pain (principal)

== ENCOUNTER → 2018-06-05 | Outpatient (CLI) | payer BC ==
[~2018-06-05] MED LIST changes: -OXYC-57 PO
[2018-06-05 14:13] LABS: BLOOD UREA NITROGEN 18 mg/dl (7-18); CALCIUM 8.5 mg/dl (8.5-10.1); CARBON DIOXIDE 28 mmol/L (21-32); CHOLESTEROL 146 mg/dl (0-200); CREATININE 1.13 mg/dl (0.60-1.40); GLUCOSE 96 mg/dl (70-99); LDL CHOLESTEROL CALCULATED 75 mg/dl; POTASSIUM 3.7 mmol/L (3.5-5.1); SODIUM 140 mmol/L (136-145)
== END | disposition home or self-care (01) ==
LOC: C.LABPBG 07:28
PROVIDERS: ATTEND Internal Medicine Geriatric Medicine
DX: I10 Essential (primary) hypertension (principal); R35.1 Nocturia; E78.5 Hyperlipidemia, unspecified